=== PATIENT | female | born 1975 | race African-American/Black ===

== ENCOUNTER 2018-06-19 17:02 | Emergency (ER) | payer SELFPAY ==
[~2018-06-19] VITALS: Ht 154.9 cm; Wt 117.9 kg
[2018-06-19 19:00] VITALS: BP 128/82
--- NOTE | 2018-06-19 21:04 | PHYS DOC ---
Past Medical History Past Medical History: No Pertinent History Past Surgical History: Tubal ligation, Other Additional Past Surgical Histo: Right knee surgery, Hemmorhoidectomy Alcohol Use: None Drug Use: None Adult General Chief Complaint Chief Complaint: WRIST PAIN [facility] HPI Patient is a 42 year old [f__sex] who presents with [] Review of Systems Review of Systems Constitutional: Denies fever or chills [] Eyes: Denies change in visual acuity, redness, or eye pain [] HENT: Denies nasal congestion or sore throat [] Respiratory: Denies cough or shortness of breath [] Cardiovascular: No additional information not addressed in HPI [] GI: Denies abdominal pain, nausea, vomiting, bloody stools or diarrhea [] : Denies dysuria or hematuria [] Musculoskeletal: Denies back pain or joint pain [] Integument: Denies rash or skin lesions [] Neurologic: Denies headache, focal weakness or sensory changes [] Endocrine: Denies polyuria or polydipsia [] All other systems were reviewed and found to be within normal limits, except as documented in this note. Allergies Allergies Allergies Coded Allergies Type Severity Reaction Last Updated Verified Penicillins Allergy Intermediate Nausea/Vomiting 06/19/18 Yes erythromycin base Allergy Intermediate Passed Out 06/19/18 Yes Physical Exam Physical Exam Constitutional: Well developed, well nourished, no acute distress, non-toxic appearance. [] HENT: Normocephalic, atraumatic, bilateral external ears normal, oropharynx moist, no oral exudates, nose normal. [] Eyes: PERRLA, EOMI, conjunctiva normal, no discharge. [] Neck: Normal range of motion, no tenderness, supple, no stridor. [] Cardiovascular:Heart rate regular rhythm, no murmur [] Lungs & Thorax: Bilateral breath sounds clear to auscultation [] Abdomen: Bowel sounds normal, soft, no tenderness, no masses, no pulsatile masses. [] Skin: Warm, dry, no erythema, no rash. [] Back: No tenderness, no CVA tenderness. [] Extremities: No tenderness, no cyanosis, no clubbing, ROM intact, no edema. [] Neurologic: Alert and oriented X 3, normal motor function, normal sensory function, no focal deficits noted. [] Psychologic: Affect normal, judgement normal, mood normal. [] Current Patient Data Vital Signs Vital Signs Date Time Temp Pulse Resp B/P (MAP) Pulse Ox O2 Delivery O2 Flow Rate FiO2 06/19/18 19:00 98.4 79 18 128/82 (97) 100 Room Air 98.4 EKG EKG [] Radiology/Procedures Radiology/Procedures [] Course & Med Decision Making Course & Med Decision Making Pertinent Imaging studies reviewed. (See chart for details) 2054: Discussed x-ray results with patient with no obvious displaced fracture on imaging which was discussed with and reviewed by Dr. Asencio. Discussed plans for volar splint and patient to follow-up with orthopedics for reevaluation. Patient remains neuro and vascular intact in right upper extremity. Patient provided on signs and symptoms to return to ER for an discharge instructions were discussed. Will provide Dr. Oconnor's referral information on discharge paperwork. Dragon Disclaimer Dragon Disclaimer This electronic medical record was generated, in whole or in part, using a voice recognition dictation system. Departure Departure Impression: Primary Impression: Injury of wrist, right Disposition: 01 HOME, SELF-CARE Condition: STABLE Referrals: NO PCP (PCP) JOSE A OCONNOR MD Patient Instructions: Wrist Pain Additional Instructions: With ongoing pain he was placed in a splint until follow-up with orthopedic doctor for reevaluation and further care. You can take Tylenol and/or ibuprofen as directed on container as needed for pain control. JORDI DUMONT APRN Jun 19, 2018 21:04
--- NOTE | 2018-06-20 02:58 | RAD ---
Examination: WRIST 3V RIGHT History: RIGHT WRIST PAIN SINCE THIS AFTERNOON. STATES HITTING WRIST ON KITCHEN TABLE X2 DAYS AGO Comparison/Correlation: None Findings: Total 3 images of the right wrist were obtained. Joint spaces are normal. No acute fracture or bony destructive change. Soft tissues are unremarkable. Impression: No acute fracture. Consider further evaluation if occult process is a concern. Electronically signed by: Miki Johnson MD (06/20/2018 2:54 AM) [facility]
== END 2018-06-19 21:46 | disposition home or self-care (01) ==
LOC: ER 17:02
DX: S69.81XA Other specified injuries of right wrist, hand and finger(s), initial encounter (principal); Z98.51 Tubal ligation status; Z88.0 Allergy status to penicillin; Z88.1 Allergy status to other antibiotic agents; X58.XXXA Exposure to other specified factors, initial encounter; Y93.89 Activity, other specified; Y92.89 Other specified places as the place of occurrence of the external cause; Y99.8 Other external cause status
CPT/HCPCS: 73110; 99283

== ENCOUNTER 2018-07-26 21:01 | Emergency (ER) | payer SELFPAY ==
[~2018-07-26] VITALS: Ht 154.9 cm; Wt 117.9 kg
[2018-07-26] MEDS ORDERED: IBUP-1060 PO (21:15)
[2018-07-26] MEDS ORDERED: TRAM50TA PO (21:15)
[2018-07-26 21:26] VITALS: BP 149/79
[2018-07-26] MEDS ORDERED: HYDROcodone/APAP 5/325MG 1 TAB TABLET PO ONE (21:30)
[2018-07-26] MEDS ORDERED: IBUPROFEN 600 MG TABLET. PO ONE (21:30)
--- NOTE | 2018-07-27 02:48 | PHYS DOC ---
Past Medical History Past Medical History: No Pertinent History Past Surgical History: Tubal ligation, Other Additional Past Surgical Histo: Right knee surgery, Hemmorhoidectomy Alcohol Use: None Drug Use: None Adult General Chief Complaint Chief Complaint: LOWER EXT PAIN HPI HPI Patient is a 42 year old female who presents with left foot pain. Patient has had complaints of left foot pain over the last couple of days. She reports she has been standing more than normal because she has a family member at the [facility]. Pain is located over the heel and the plantar surface of the left foot. She denies any recent trauma. She does endorse a prior history of similar symptoms for which she was treated with anti- inflammatory medications. No fever. She has been able to ambulate without difficulty. Review of Systems Review of Systems Constitutional: Denies fever or chills GI: Denies abdominal pain, nausea : Denies dysuria Musculoskeletal: as documented above Integument: Denies rash or skin lesions All other systems were reviewed and found to be within normal limits, except as documented in this note. Current Medications Current Medications Current Medications Medications (Trade) Dose Ordered Sig/Lorna Start Time Stop Time Status Last Admin Dose Admin Acetaminophen/ Hydrocodone Bitart (Lortab 5/325) 1 tab 1X ONCE 07/26/18 21:30 07/26/18 21:30 DC Ibuprofen (Motrin) 600 mg 1X ONCE 07/26/18 21:30 07/26/18 21:30 DC Allergies Allergies Allergies Coded Allergies Type Severity Reaction Last Updated Verified Penicillins Allergy Intermediate Nausea/Vomiting 06/19/18 Yes erythromycin base Allergy Intermediate Passed Out 06/19/18 Yes Physical Exam Physical Exam Constitutional: Well developed, well nourished, no acute distress, non-toxic appearance HENT: Normocephalic, atraumatic, bilateral external ears normal, oropharynx moist Skin: Warm, dry Extremities: normal examination of the left foot other than TTP over plantar fascia from heel to ball of foot. skin is normal Neurologic: Alert and oriented X 3 Psychologic: Affect normal Current Patient Data Vital Signs Vital Signs Date Time Temp Pulse Resp B/P (MAP) Pulse Ox O2 Delivery O2 Flow Rate FiO2 07/26/18 21:26 97.8 71 18 149/79 (102) 100 Room Air 97.8 EKG EKG [] Radiology/Procedures Radiology/Procedures [] Course & Med Decision Making Course & Med Decision Making Pertinent Labs and Imaging studies reviewed. (See chart for details) Patient is evaluated in the emergency department for symptoms consistent with plantar fasciitis. She was given a prescription for ibuprofen and discharged to home. Advised to contact her primary care doctor and follow-up or return to the ER for any new or worsening symptoms. Patient was agreeable to this plan of care. Dragon Disclaimer Dragon Disclaimer This electronic medical record was generated, in whole or in part, using a voice recognition dictation system. Departure Departure Impression: Primary Impression: Plantar fasciitis of left foot Disposition: HOME, SELF-CARE Condition: GOOD Patient Instructions: Plantar Fasciitis (Heel Spur Syndrome) with Rehab- [facility] Scripts Ibuprofen (IBUPROFEN) 800 Mg Tablet 800 MG PO PRN TID PRN for MILD PAIN, #30 TAB take with food or milk to avoid upsetting stomach Prov: SOLEDAD WESTON DO 07/26/18 Tramadol Hcl (TRAMADOL HCL) 50 Mg Tablet 50 MG PO BID PRN for SEVERE PAIN, #20 TAB 0 Refills Prov: SOLEDAD WESTON DO 07/26/18 SOLEDAD WESTON DO Jul 27, 2018 02:48
== END 2018-07-26 21:30 | disposition home or self-care (01) ==
LOC: ER 21:01
DX: M72.2 Plantar fascial fibromatosis (principal); Z88.0 Allergy status to penicillin; Z88.1 Allergy status to other antibiotic agents
CPT/HCPCS: 99283

== ENCOUNTER 2018-08-27 10:39 | Emergency (ER) | payer SELFPAY ==
[~2018-08-27] VITALS: Ht 157.5 cm; Wt 104.3 kg
[~2018-08-27 10:39] MED LIST: IBUP-1060 PO; TRAM50TA PO
[2018-08-27 11:02] VITALS: BP 141/75
[2018-08-27] MEDS ORDERED: IBUPROFEN 600 MG TABLET. PO ONE (11:30)
--- NOTE | 2018-08-27 12:33 | RAD ---
CT THORACIC SPINE WO CONTRAST, CT LUMBAR SPINE WO CONTRAST Indication: FELL ON ICE LAST NIGHT, BACK PAIN. Exposure: One or more of the following individualized dose reduction techniques were utilized for this examination: 1. Automated exposure control 2. Adjustment of the mA and/or kV according to patient size 3. Use of iterative reconstruction technique. Comparison: None are available. Contrast: Thoracic spine Vertebral body height intact. No significant subluxation. No evidence of an acute fracture or aggressive bone destruction. No displaced fracture of the visualized central ribs. Visualized lungs appear grossly clear. Degenerative spondylosis. No high-grade central osseous spinal stenosis. However, there appears to be some stenosis of the partially visualized lower most cervical spine IMPRESSION: No evidence of acute fracture. Degenerative changes. Lumbar spine Vertebral body height intact. Alignment intact. No aggressive bone destruction. No evidence of spondylolysis. Degenerative changes at the sacroiliac joints bilaterally. No evidence of acute fracture. Mild calcifications of the visualized aortoiliac structures. IMPRESSION: No acute fracture or subluxation. Electronically signed by: Abebe Barrera MD (08/27/2018 12:29 PM) [facility]
[2018-08-27] MEDS ORDERED: HYDROcodone/APAP 5/325MG 1 TAB TABLET PO ONE (12:45)
--- NOTE | 2018-08-27 13:11 | RAD ---
ANKLE RIGHT 3V, WRIST 3V LEFT, KNEE LEFT 4V History: RIGHT ANKLE PAIN AFTER FALL ON ICE X1 DAY AGO. 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 Tiny bone density just lateral to the first carpometacarpal joint, could represent a tiny avulsion fracture but age is indeterminate. No other acute fracture is identified. IMPRESSION: 1. Possible small avulsion fracture at the lateral first carpometacarpal joint, but if so it is likely chronic. No definite acute fracture. 2. 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 Joint spaces are intact. No evidence of soft tissue abnormality. IMPRESSION: No acute fracture or dislocation. 3 view right ankle No evidence of acute fracture. No aggressive bone destruction. No evidence of dislocation. No significant soft tissue abnormality. IMPRESSION: No acute fracture or dislocation. Electronically signed by: Abebe Barrera MD (08/27/2018 1:08 PM) [facility]
[2018-08-27] MEDS ORDERED: ORPH100T PO (13:24)
[2018-08-27] MEDS ORDERED: HYDR-3164 PO (13:24)
[2018-08-27] MEDS ORDERED: IBUP-1007 PO (13:24)
--- NOTE | 2018-08-27 13:25 | PHYS DOC ---
Past Medical History Past Medical History: No Pertinent History Past Surgical History: Tubal ligation, Other Additional Past Surgical Histo: Right knee surgery, Hemmorhoidectomy Alcohol Use: None Drug Use: None Adult General Chief Complaint Chief Complaint: MECHANICAL FALL HPI HPI Patient is a 42 year old female who presents with slipped on ice yesterday falling hurting her left wrist, left knee, right ankle and lumbar back bilaterally. Patient is ambulatory with a steady gait. Patient rates her pain a 10 out of 10 and states she did not take any pain medications. Review of Systems Review of Systems Constitutional: Denies fever or chills [] Eyes: Denies change in visual acuity, redness, or eye pain [] HENT: Denies nasal congestion or sore throat [] Respiratory: Denies cough or shortness of breath [] Cardiovascular: No additional information not addressed in HPI [] GI: Denies abdominal pain, nausea, vomiting, bloody stools or diarrhea [] : Denies dysuria or hematuria [] Musculoskeletal: Lumbar back pain or knee and ankle and wrist joint pain [] Integument: Denies rash or skin lesions [] Neurologic: Denies headache, focal weakness or sensory changes [] Endocrine: Denies polyuria or polydipsia [] All other systems were reviewed and found to be within normal limits, except as documented in this note. Current Medications Current Medications Current Medications Medications (Trade) Dose Ordered Sig/Lorna Start Time Stop Time Status Last Admin Dose Admin Acetaminophen/ Hydrocodone Bitart (Lortab 5/325) 1 tab 1X ONCE 08/27/18 12:45 08/27/18 12:46 DC 08/27/18 13:00 1 TAB Ibuprofen (Motrin) 600 mg 1X ONCE 08/27/18 11:30 08/27/18 11:31 DC 08/27/18 12:09 600 MG Allergies Allergies Allergies Coded Allergies Type Severity Reaction Last Updated Verified Penicillins Allergy Intermediate Nausea/Vomiting 06/19/18 Yes erythromycin base Allergy Intermediate Passed Out 06/19/18 Yes Physical Exam Physical Exam Constitutional: Well developed, well nourished, no acute distress, non-toxic appearance. [] HENT: Normocephalic, atraumatic, bilateral external ears normal, oropharynx moist, no oral exudates, nose normal. [] Eyes: PERRLA, EOMI, conjunctiva normal, no discharge. [] Neck: Normal range of motion, no tenderness, supple, no stridor. [] Cardiovascular:Heart rate regular rhythm, no murmur [] Lungs & Thorax: Bilateral breath sounds clear to auscultation [] Abdomen: Bowel sounds normal, soft, no tenderness, no masses, no pulsatile masses. [] Skin: Warm, dry, no erythema, no rash. [] Back: Lumbar tenderness, no CVA tenderness. [] Extremities: No tenderness, no cyanosis, no clubbing, ROM intact, no edema. [] Neurologic: Alert and oriented X 3, normal motor function, normal sensory function, no focal deficits noted. [] Psychologic: Affect normal, judgement normal, mood normal. [] Current Patient Data Vital Signs Vital Signs Date Time Temp Pulse Resp B/P (MAP) Pulse Ox O2 Delivery O2 Flow Rate FiO2 08/27/18 11:02 98.3 76 20 141/75 (97) 99 Room Air 98.3 EKG EKG [] Radiology/Procedures Radiology/Procedures [] Impressions: [facility] [address] [place] [address] IMAGING REPORT Signed PATIENT: BETHANIE THOMAS ACCOUNT: [id number] : 1975 LOCATION: ER AGE: 42 SEX: F EXAM STATUS: REG ER ORD. PHYSICIAN: CARRI FIGUEROA APRN REASON: fall, pain PROCEDURE: WRIST 3V LEFT ANKLE RIGHT 3V, WRIST 3V LEFT, KNEE LEFT 4V History: RIGHT ANKLE PAIN AFTER FALL ON ICE X1 DAY AGO. 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 Tiny bone density just lateral to the first carpometacarpal joint, could represent a tiny avulsion fracture but age is indeterminate. No other acute fracture is identified. IMPRESSION: 1. Possible small avulsion fracture at the lateral first carpometacarpal joint, but if so it is likely chronic. No definite acute fracture. 2. 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 Joint spaces are intact. No evidence of soft tissue abnormality. IMPRESSION: No acute fracture or dislocation. 3 view right ankle No evidence of acute fracture. No aggressive bone destruction. No evidence of dislocation. No significant soft tissue abnormality. IMPRESSION: No acute fracture or dislocation. Electronically signed by: Abebe Barrera MD (08/27/2018 1:08 PM) [facility] DICTATED and SIGNED BY: ABEBE BARRERA MD DATE: 08/27/18 1303 [facility] [address] [place] [address] IMAGING REPORT Signed PATIENT: OVERALL,CRYSTAL ACCOUNT: [id number] : 1975 LOCATION: ER AGE: 42 SEX: F EXAM STATUS: REG ER ORD. PHYSICIAN: CARRI FIGUEROA APRN REASON: fall, pain PROCEDURE: CT THORACIC SPINE WO CONTRAST CT THORACIC SPINE WO CONTRAST, CT LUMBAR SPINE WO CONTRAST Indication: FELL ON ICE LAST NIGHT, BACK PAIN. Exposure: One or more of the following individualized dose reduction techniques were utilized for this examination: 1. Automated exposure control 2. Adjustment of the mA and/or kV according to patient size 3. Use of iterative reconstruction technique. Comparison: None are available. Contrast: Thoracic spine Vertebral body height intact. No significant subluxation. No evidence of an acute fracture or aggressive bone destruction. No displaced fracture of the visualized central ribs. Visualized lungs appear grossly clear. Degenerative spondylosis. No high-grade central osseous spinal stenosis. However, there appears to be some stenosis of the partially visualized lower most cervical spine IMPRESSION: No evidence of acute fracture. Degenerative changes. Lumbar spine Vertebral body height intact. Alignment intact. No aggressive bone destruction. No evidence of spondylolysis. Degenerative changes at the sacroiliac joints bilaterally. No evidence of acute fracture. Mild calcifications of the visualized aortoiliac structures. IMPRESSION: No acute fracture or subluxation. Electronically signed by: Abebe Barrera MD (08/27/2018 12:29 PM) [facility] DICTATED and SIGNED BY: ABEBE BARRERA MD DATE: 08/27/18 1224 [facility] [address] [place] [address] IMAGING REPORT Signed PATIENT: OVERALL,CRYSTAL ACCOUNT: [id number] : 1975 LOCATION: ER AGE: 42 SEX: F EXAM STATUS: REG ER ORD. PHYSICIAN: CARRI FIGUEROA APRN REASON: fall, pain PROCEDURE: CT LUMBAR SPINE WO CONTRAST CT THORACIC SPINE WO CONTRAST, CT LUMBAR SPINE WO CONTRAST Indication: FELL ON ICE LAST NIGHT, BACK PAIN. Exposure: One or more of the following individualized dose reduction techniques were utilized for this examination: 1. Automated exposure control 2. Adjustment of the mA and/or kV according to patient size 3. Use of iterative reconstruction technique. Comparison: None are available. Contrast: Thoracic spine Vertebral body height intact. No significant subluxation. No evidence of an acute fracture or aggressive bone destruction. No displaced fracture of the visualized central ribs. Visualized lungs appear grossly clear. Degenerative spondylosis. No high-grade central osseous spinal stenosis. However, there appears to be some stenosis of the partially visualized lower most cervical spine IMPRESSION: No evidence of acute fracture. Degenerative changes. Lumbar spine Vertebral body height intact. Alignment intact. No aggressive bone destruction. No evidence of spondylolysis. Degenerative changes at the sacroiliac joints bilaterally. No evidence of acute fracture. Mild calcifications of the visualized aortoiliac structures. IMPRESSION: No acute fracture or subluxation. Electronically signed by: Abebe Barrera MD (08/27/2018 12:29 PM) [facility] DICTATED and SIGNED BY: ABEBE BARRERA MD DATE: 08/27/18 1224 [facility] [address] [place], [place] [id number] IMAGING REPORT Signed PATIENT: BETHANIE THOMAS ACCOUNT: [id number] : 1975 LOCATION: ER AGE: 42 SEX: F EXAM STATUS: REG ER ORD. PHYSICIAN: CARRI FIGUEROA APRN REASON: fall, pain PROCEDURE: KNEE LEFT 4V ANKLE RIGHT 3V, WRIST 3V LEFT, KNEE LEFT 4V History: RIGHT ANKLE PAIN AFTER FALL ON ICE X1 DAY AGO. 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 Tiny bone density just lateral to the first carpometacarpal joint, could represent a tiny avulsion fracture but age is indeterminate. No other acute fracture is identified. IMPRESSION: 1. Possible small avulsion fracture at the lateral first carpometacarpal joint, but if so it is likely chronic. No definite acute fracture. 2. 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 Joint spaces are intact. No evidence of soft tissue abnormality. IMPRESSION: No acute fracture or dislocation. 3 view right ankle No evidence of acute fracture. No aggressive bone destruction. No evidence of dislocation. No significant soft tissue abnormality. IMPRESSION: No acute fracture or dislocation. Electronically signed by: Abebe Barrera MD (08/27/2018 1:08 PM) [facility] DICTATED and SIGNED BY: ABEBE BARRERA MD DATE: 08/27/18 1303 [facility] [address] [place] [address] IMAGING REPORT Signed PATIENT: WILLIAM,BETHANIE ACCOUNT: [id number] : 1975 LOCATION: ER AGE: 42 SEX: F EXAM STATUS: REG ER ORD. PHYSICIAN: CARRI FIGUEROA APRN REASON: fall, pain PROCEDURE: ANKLE RIGHT 3V ANKLE RIGHT 3V, WRIST 3V LEFT, KNEE LEFT 4V History: RIGHT ANKLE PAIN AFTER FALL ON ICE X1 DAY AGO. 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 Tiny bone density just lateral to the first carpometacarpal joint, could represent a tiny avulsion fracture but age is indeterminate. No other acute fracture is identified. IMPRESSION: 1. Possible small avulsion fracture at the lateral first carpometacarpal joint, but if so it is likely chronic. No definite acute fracture. 2. 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 Joint spaces are intact. No evidence of soft tissue abnormality. IMPRESSION: No acute fracture or dislocation. 3 view right ankle No evidence of acute fracture. No aggressive bone destruction. No evidence of dislocation. No significant soft tissue abnormality. IMPRESSION: No acute fracture or dislocation. Electronically signed by: Abebe Barrera MD (08/27/2018 1:08 PM) [facility] CENTERArcamedMT. [facility] DI[facility]ATED and SIGNED BY: ABEBE BARRERA MD DATE: 08/27/18 3355 Course & Med Decision Making Course & Med Decision Making Patient is a 42 year old female who presents with slipped on ice yesterday falling hurting her left wrist, left knee, right ankle and lumbar back bilaterally. Patient is ambulatory with a steady gait. Patient rates her pain a 10 out of 10 and states she did not take any pain medications. Patient has tenderness on the outside of her right ankle. Patient has intact range of motion of all her joints but her right ankle and left knee are tender with movement. There is no swelling or deformity seen in any part of the patient's body. She denies hitting her head or LOC. Patient denies any nausea or vomiting. Patient has no bony tenderness in her spine. Patient has no sciatica. She denies any numbness or tingling. Patient has no extremity edema. Pulses are present in all extremities. CT scan and x-rays show no acute findings. Patient likely has muscle sprains, strains and bruising. Patient is given pain medications and told to follow-up with her primary care doctor. Dragon Disclaimer Dragon Disclaimer This electronic medical record was generated, in whole or in part, using a voice recognition dictation system. Departure Departure Impression: Primary Impression: Contusion Additional Impressions: Muscle strain Knee pain Ankle pain Wrist pain Back pain Fall Disposition: 01 HOME, SELF-CARE Condition: STABLE Referrals: NO PCP (PCP) Patient Instructions: Contusion, Fall Prevention and Home Safety, Low Back Strain with [facility]hab[facility] Additional Instructions: Follow up your primary care provider. Take medications as prescribed. Try using a heating bad. Scripts Orphenadrine Citrate (ORPHENADRINE CITRATE) 100 Mg Tablet.er 1 TAB PO BID for 7 Days, #14 TAB Prov: CARRI FIGUEROA WARP PREPARER 08/27/18 Ibuprofen (IBUPROFEN) 600 Mg Tablet 600 MG PO PRN Q6HRS PRN for INFLAMMATION, #15 TAB Prov: CARRI FIGUEROA WARP PREPARER 08/27/18 Hydrocodone/Apap 5-325 (NORCO 5-325 TABLET) 1 Each Tablet 1 TAB PO PRN Q6HRS PRN for PAIN, #10 TAB 0 Refills Prov: CARRI FIGUEROA WARP PREPARER 08/27/18 Problem Qualifiers Primary Impression: Contusion Encounter type: initial encounter Contusion area: knee Laterality: left Qualified Codes: S80.02XA - Contusion of left knee, initial encounter Additional Impressions: Knee pain Chronicity: acute Laterality: left Qualified Codes: M25.562 - Pain in left knee Ankle pain Chronicity: acute Laterality: right Qualified Codes: M25.571 - Pain in right ankle and joints of right foot Wrist pain Laterality: left Qualified Codes: M25.532 - Pain in left wrist Back pain Back pain location: low back pain Chronicity: acute Back pain laterality: bilateral Sciatica presence: without sciatica Qualified Codes: M54.5 - Low back pain Fall Encounter type: initial encounter Qualified Codes: W19.XXXA - Unspecified fall, initial encounter CARRI FIGUEROA APRN Aug 27, 2018 13:25
== END 2018-08-27 13:56 | disposition home or self-care (01) ==
LOC: ER 10:39
DX: S39.012A Strain of muscle, fascia and tendon of lower back, initial encounter (principal); M25.562 Pain in left knee; M25.571 Pain in right ankle and joints of right foot; M25.532 Pain in left wrist; M47.894 Other spondylosis, thoracic region; Z88.0 Allergy status to penicillin; Z88.1 Allergy status to other antibiotic agents; W00.0XXA Fall on same level due to ice and snow, initial encounter; Y93.89 Activity, other specified; Y92.89 Other specified places as the place of occurrence of the external cause; Y99.8 Other external cause status
CPT/HCPCS: 72128; 72131; 73110; 73564; 73610; 99284

== ENCOUNTER 2018-12-11 10:43 | Emergency (ER) | payer SELFPAY ==
[~2018-12-11] VITALS: Ht 157.5 cm; Wt 117.9 kg
[~2018-12-11 10:43] MED LIST changes: +HYDR-3164 PO; +IBUP-1007 PO; +ORPH100T PO
--- NOTE | 2018-12-11 11:16 | PHYS DOC ---
Past Medical History Past Medical History: No Pertinent History Past Surgical History: Tubal ligation, Other Additional Past Surgical Histo: Right knee surgery, Hemmorhoidectomy Alcohol Use: None Drug Use: None Adult General Chief Complaint Chief Complaint: ANKLE PROBLEM [facility] HPI Patient is a 43 year old female presents to the ED complaining of left foot pain 1 week. Patient has a new job where she has to work on her feet a lot. Complains of pain to left foot. Describes the pain as sharp. Rates the pain as 5 out of 10. States the pain is worse with ambulation. Denies weakness, paresthesias, known injury, calf pain/swelling. Review of Systems Review of Systems Constitutional: Denies fever or chills [] Eyes: Denies change in visual acuity, redness, or eye pain [] HENT: Denies nasal congestion or sore throat [] Respiratory: Denies cough or shortness of breath [] Cardiovascular: No additional information not addressed in HPI [] GI: Denies abdominal pain, nausea, vomiting, bloody stools or diarrhea [] : Denies dysuria or hematuria [] Musculoskeletal: Complains of foot pain. Denies back pain. Integument: Denies rash or skin lesions [] Neurologic: Denies headache, focal weakness or sensory changes [] All other systems were reviewed and found to be within normal limits, except as documented in this note. Allergies Allergies Allergies Coded Allergies Type Severity Reaction Last Updated Verified Penicillins Allergy Intermediate Nausea/Vomiting 06/19/18 Yes erythromycin base Allergy Intermediate Passed Out 06/19/18 Yes Physical Exam Physical Exam Constitutional: Well developed, well nourished, no acute distress, non-toxic appearance. [] HENT: Normocephalic, atraumatic Skin: Warm, dry, no erythema, no rash. [] Back: No tenderness, no CVA tenderness. [] Extremities: mild left mid dorsal foot tenderness. no cyanosis, no clubbing, ROM intact, no edema. [] Neurologic: Alert and oriented X 3, normal motor function, normal sensory function, no focal deficits noted. [] Psychologic: Affect normal, judgement normal, mood normal. [] Current Patient Data Vital Signs Vital Signs Date Time Temp Pulse Resp B/P (MAP) Pulse Ox O2 Delivery O2 Flow Rate FiO2 12/11/18 12:07 78 16 160/77 (104) 97 Room Air 12/11/18 10:46 98.3 98.3 EKG EKG [] Radiology/Procedures Radiology/Procedures []PROCEDURE: FOOT LEFT 3V Exam performed: Left foot 3 views. Indication: Left foot pain for one week Date of Service: 12/11/2018 . Comparison: None available Three views left foot findings: Normal alignment is preserved. There is no acute fracture or dislocation. There is mild soft tissue swelling, no definite foreign bodies identified. Impression: 1. No acute bony abnormality seen . Course & Med Decision Making Course & Med Decision Making Pertinent Labs and Imaging studies reviewed. (See chart for details) []Discussed imaging findings with patient. Patient's able to ambulate without assistance. Discussed symptomatic treatment and using inserts. Discussed follow- up with orthopedics if pain persists. Provided contact information/education. Discussed reasons to return to the ED. Patient understands and agrees with plan. Dragon Disclaimer Dragon Disclaimer This electronic medical record was generated, in whole or in part, using a voice recognition dictation system. Departure Departure Impression: Primary Impression: Foot pain Disposition: 01 HOME, SELF-CARE Condition: STABLE Referrals: NO PCP (PCP) Patient Instructions: Foot Sprain RANI WITT Dec 11, 2018 11:16
--- NOTE | 2018-12-11 11:52 | RAD ---
Exam performed: Left foot 3 views. Indication: Left foot pain for one week Date of Service: 12/11/2018 . Comparison: None available Three views left foot findings: Normal alignment is preserved. There is no acute fracture or dislocation. There is mild soft tissue swelling, no definite foreign bodies identified. Impression: 1. No acute bony abnormality seen . Electronically signed by: Alayna Matthews MD (12/11/2018 11:50 AM) [facility]
[2018-12-11 12:07] VITALS: BP 160/77
== END 2018-12-11 12:07 | disposition home or self-care (01) ==
LOC: ER 10:43
DX: M79.672 Pain in left foot (principal); Z98.51 Tubal ligation status; Z88.0 Allergy status to penicillin; Z88.1 Allergy status to other antibiotic agents
CPT/HCPCS: 73630; 99284

== ENCOUNTER 2019-01-06 15:10 | Emergency (ER) | payer SELFPAY ==
[~2019-01-06] VITALS: Ht 157.5 cm; Wt 115.7 kg
[~2019-01-06 15:10] MED LIST changes: +FAMO-63 PO; +LORA0.5T96 PO
[2019-01-06 15:41] LABS: BASO # 0.1 x10^3/uL (0.0-0.2); BASO % 1 % (0-3); EOS # 0.3 x10^3/uL (0.0-0.7); EOS % 4 % (0-3); HEMOGLOBIN 13.8 g/dL (12.0-15.5); LYMPH % 28 % (24-48); MEAN CORPUSCULAR HEMOGLOBIN 30 pg (25-35); MEAN CORPUSCULAR HGB CONC 34 g/dL (31-37); MEAN CORPUSCULAR VOLUME 89 fL (79-100); MONO # 0.7 x10^3/uL (0.0-1.1); MONO % 10 % (0-9); NEUT % 57 % (31-73); PLATELET COUNT 398 x10^3/uL (140-400); RED BLOOD COUNT 4.62 x10^6/uL (3.50-5.40); RED CELL DISTRIBUTION WIDTH 13.8 % (11.5-14.5)
--- NOTE | 2019-01-06 15:43 | PHYS DOC ---
Past Medical History Past Medical History: No Pertinent History, Anxiety Past Surgical History: Tubal ligation, Other Additional Past Surgical Histo: Right knee surgery, Hemmorhoidectomy Alcohol Use: None Drug Use: None Adult General Chief Complaint Chief Complaint: CHEST PAIN HPI HPI Patient is a 43 year old female with history of anxiety who presents to the ED today complaining of left-sided chest pain intermittently for one month. Patient denies any pain right now. Unable to rate the pain when it occurs. Denies anything specifically exacerbating the pain but she states whenever she has it she can pinch her left breast and the pain is relieved. She states she has been seen by her PCP a couple days ago and was started on antianxiety medications. She states she's been told her chest pain is anxiety related. She presents today to be evaluated. Review of Systems Review of Systems Constitutional: Denies fever or chills [] Eyes: Denies change in visual acuity, redness, or eye pain [] HENT: Denies nasal congestion or sore throat [] Respiratory: Denies cough or shortness of breath [] Cardiovascular: Reports left-sided chest pain GI: Denies abdominal pain, nausea, vomiting, bloody stools or diarrhea [] : Denies dysuria or hematuria [] Musculoskeletal: Denies back pain or joint pain [] Integument: Denies rash or skin lesions [] Neurologic: Denies headache, focal weakness or sensory changes [] All other systems were reviewed and found to be within normal limits, except as documented in this note. Allergies Allergies Allergies Coded Allergies Type Severity Reaction Last Updated Verified Penicillins Allergy Intermediate Nausea/Vomiting 06/19/18 Yes erythromycin base Allergy Intermediate Passed Out 06/19/18 Yes Physical Exam Physical Exam Constitutional: Well developed, well nourished, no acute distress, non-toxic appearance. [] HENT: Normocephalic, atraumatic, bilateral external ears normal, oropharynx moist, no oral exudates, nose normal. [] Eyes: PERRLA, EOMI, conjunctiva normal, no discharge. [] Neck: Normal range of motion, no tenderness, supple, no stridor. [] Cardiovascular:Heart rate regular rhythm, no murmur [] Lungs & Thorax: Bilateral breath sounds clear to auscultation [] Abdomen: Bowel sounds normal, soft, no tenderness, no masses, no pulsatile masses. [] Skin: Warm, dry, no erythema, no rash. [] Back: No tenderness, no CVA tenderness. [] Extremities: No tenderness, no cyanosis, no clubbing, ROM intact, no edema. [] Neurologic: Alert and oriented X 3, normal motor function, normal sensory function, no focal deficits noted. [] Psychologic: Affect normal, judgement normal, mood normal. [] Current Patient Data Vital Signs Vital Signs Date Time Temp Pulse Resp B/P (MAP) Pulse Ox O2 Delivery O2 Flow Rate FiO2 01/06/19 15:20 97.5 78 16 174/79 (110) 100 Room Air 97.5 Lab Values Laboratory Tests Test 01/06/19 15:30 01/06/19 15:47 White Blood Count 7.0 x10^3/uL (4.0-11.0) Red Blood Count 4.62 x10^6/uL (3.50-5.40) Hemoglobin 13.8 g/dL (12.0-15.5) Hematocrit 41.0 % (36.0-47.0) Mean Corpuscular Volume 89 fL (79-100) Mean Corpuscular Hemoglobin 30 pg (25-35) Mean Corpuscular Hemoglobin Concent 34 g/dL (31-37) Red Cell Distribution Width 13.8 % (11.5-14.5) Platelet Count 398 x10^3/uL (140-400) Neutrophils (%) (Auto) 57 % (31-73) Lymphocytes (%) (Auto) 28 % (24-48) Monocytes (%) (Auto) 10 % (0-9) H Eosinophils (%) (Auto) 4 % (0-3) H Basophils (%) (Auto) 1 % (0-3) Neutrophils # (Auto) 4.0 x10^3uL (1.8-7.7) Lymphocytes # (Auto) 2.0 x10^3/uL (1.0-4.8) Monocytes # (Auto) 0.7 x10^3/uL (0.0-1.1) Eosinophils # (Auto) 0.3 x10^3/uL (0.0-0.7) Basophils # (Auto) 0.1 x10^3/uL (0.0-0.2) Sodium Level 136 mmol/L (136-145) Potassium Level 3.8 mmol/L (3.5-5.1) Chloride Level 101 mmol/L (98-107) Carbon Dioxide Level 26 mmol/L (21-32) Anion Gap 9 (6-14) Blood Urea Nitrogen 10 mg/dL (7-20) Creatinine 0.9 mg/dL (0.6-1.0) Estimated GFR (Cockcroft-Gault) 81.9 BUN/Creatinine Ratio 11 (6-20) Glucose Level 105 mg/dL (70-99) H Calcium Level 9.5 mg/dL (8.5-10.1) Magnesium Level 1.8 mg/dL (1.8-2.4) Total Bilirubin 0.4 mg/dL (0.2-1.0) Aspartate Amino Transferase (AST) 14 U/L (15-37) L Alanine Aminotransferase (ALT) 23 U/L (14-59) Alkaline Phosphatase 90 U/L (46-116) Troponin I Quantitative < 0.017 ng/mL (0.000-0.055) [id number] Natriuretic Peptide 10 pg/mL (0-124) Total Protein 9.3 g/dL (6.4-8.2) H Albumin 3.4 g/dL (3.4-5.0) Albumin/Globulin Ratio 0.6 (1.0-1.7) L Thyroid Stimulating Hormone (TSH) 0.882 uIU/mL (0.358-3.74) Urine Collection Type Unknown Urine Color Yellow Urine Clarity Clear Urine pH 6.5 Urine Specific [place] 1.020 Urine Protein Negative mg/dL (NEG-TRACE) Urine Glucose (UA) Negative mg/dL (NEG) Urine Ketones (Stick) Negative mg/dL (NEG) Urine Blood Negative (NEG) Urine Nitrite Negative (NEG) Urine Bilirubin Negative (NEG) Urine Urobilinogen Dipstick 1.0 mg/dL (0.2 mg/dL) Urine Leukocyte Esterase Negative (NEG) Urine RBC Occ /HPF (0-2) Urine WBC 1-4 /HPF (0-4) Urine Squamous Epithelial Cells Mod /LPF Urine Bacteria 0 /HPF (0-FEW) Urine Mucus Slight /LPF Urine Opiates Screen Neg (NEG) Urine Methadone Screen Neg (NEG) Urine Barbiturates Neg (NEG) Urine Phencyclidine Screen Neg (NEG) Urine Amphetamine/Methamphetamine Neg (NEG) Urine Benzodiazepines Screen Neg (NEG) Urine Cocaine Screen Neg (NEG) Urine Cannabinoids Screen Neg (NEG) Urine Ethyl Alcohol Neg (NEG) Laboratory Tests 01/06/19 15:30 Laboratory Tests 01/06/19 15:30 EKG EKG 15:[address] Moreno sinus rhythm heart rate 81 no STEMI Radiology/Procedures Radiology/Procedures [] Course & Med Decision Making Course & Med Decision Making Pertinent Labs and Imaging studies reviewed. (See chart for details) This is a 43-year-old female patient presenting to the ED today with left-sided chest pain, symptoms for 1 month intermittently. Currently has no chest pain. Has been worked up for her chest pain and was diagnosed with anxiety. Was started on antianxiety medication. EKG is negative, chest x-ray is negative, labs including troponin are negative. She is a low risk patient. She was discharged home. Encouraged to continue taking her anxiety medicines and follow- up with her own PCP in the course of next week. Also provided certified scrub tech for follow-up. Dragon Disclaimer Dragon Disclaimer This electronic medical record was generated, in whole or in part, using a voice recognition dictation system. The HEART Score for CP Pts HEART Score for Chest Pain: HEART Score for Chest Pain Response (Comments) Value History Slighlty/Non-Suspicious 0 ECG Normal 0 Age >45 - < 65 1 Risk Factors No Risk Factors 0 Troponin < Normal Limit 0 Total 1 Risk Factors: Risk Factors: DM, Current or recent (<one month) smoker, HTN, HLP, family history of CAD, obesity. Risk Scores: Score 0 - 3: 2.5% MACE over next 6 weeks - Discharge Home Score 4 - 6: 20.3% MACE over next 6 weeks - Admit for Clinical Observation Score 7 - 10: 72.7% MACE over next 6 weeks - Early Invasive Strategies Departure Departure Impression: Primary Impression: Chest pain Disposition: HOME, SELF-CARE Condition: STABLE Referrals: NO PCP (PCP) JAISON COX MD follow up in 1-2 weeks Patient Instructions: Chest Pain (Nonspecific) Additional Instructions: You were evaluated in the emergency room for chest pain. Your workup was negative for any acute findings. Please continue taking anxiety medications and follow-up with your doctor in the course of next week. You can also follow-up with the provided certified scrub tech. Problem Qualifiers Primary Impression: Chest pain Chest pain type: unspecified Qualified Codes: R07.9 - Chest pain, unspecified KAM ZULETA PROGRAM MGR Jan 06, 2019 15:43
--- NOTE | 2019-01-06 15:50 | RAD ---
Single view chest dated 01/06/2019: No comparison available. Clinical Indication: Chest pain. Findings: Single upright portable exam of the chest was performed. Heart size and mediastinal contours are within normal limits given technique. The lungs are clear without evidence of focal consolidation. Vascular interstitium is within normal limits. Impression:: Negative portable chest. Electronically signed by: Abebe Layton MD (01/06/2019 3:47 PM) [facility] [place]
[2019-01-06 16:06] LABS: BILIRUBIN,URINE NEGATIVE (NEG); CLARITY,URINE CLEAR; COLOR,URINE YELLOW; NITRITE,URINE NEGATIVE (NEG); PH,URINE 6.5; PROTEIN,URINE NEGATIVE (NEG-TRACE)
[2019-01-06 16:11] LABS: CALCIUM 9.5 mg/dL (8.5-10.1); CREATININE 0.9 mg/dL (0.6-1.0); GFR 81.9; POTASSIUM 3.8 mmol/L (3.5-5.1)
[2019-01-06 16:14] LABS: ALBUMIN 3.4 g/dL (3.4-5.0); ALBUMIN/GLOBULIN RATIO 0.6 (1.0-1.7); MAGNESIUM 1.8 mg/dL (1.8-2.4); TOTAL BILIRUBIN 0.4 mg/dL (0.2-1.0); TOTAL PROTEIN 9.3 g/dL (6.4-8.2)
[2019-01-06 16:15] LABS: BARBITURATES NEG (NEG); BENZODIAZEPINES NEG (NEG); CANNABINOIDS NEG (NEG); COCAINE NEG (NEG); METHADONE NEG (NEG); OPIATES NEG (NEG); PHENCYCLIDINE NEG (NEG)
[2019-01-06 16:16] LABS: AMPHETAMINE/METHAMPHETAMINE NEG (NEG)
[2019-01-06 16:21] LABS: BACTERIA,URINE 0 /HPF (0-FEW); RBC,URINE OCC /HPF (0-2); SQUAMOUS EPITHELIAL CELL,UR MOD /LPF
[2019-01-06 17:13] VITALS: BP 133/78
--- NOTE | 2019-01-08 07:56 | EKG ---
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
== END 2019-01-06 17:20 | disposition home or self-care (01) ==
LOC: ER 15:10
DX: R07.89 Other chest pain (principal); F41.9 Anxiety disorder, unspecified; Z98.51 Tubal ligation status; Z88.0 Allergy status to penicillin; Z88.1 Allergy status to other antibiotic agents
CPT/HCPCS: 36415; 71045; 80053; 80307; 81001; 83735; 83880; 84443; 84484; 85025; 93005; 99285-25

== ENCOUNTER 2019-01-22 16:09 | Emergency (ER) | payer SELFPAY ==
[~2019-01-22] VITALS: Ht 154.9 cm; Wt 115.7 kg
[2019-01-22 16:49] LABS: BILIRUBIN,URINE NEGATIVE (NEG); CLARITY,URINE CLEAR; COLOR,URINE YELLOW; NITRITE,URINE NEGATIVE (NEG); PH,URINE 5.5; PROTEIN,URINE NEGATIVE (NEG-TRACE)
[2019-01-22 16:54] VITALS: BP 147/70
[2019-01-22 17:01] LABS: BACTERIA,URINE FEW /HPF (0-FEW); RBC,URINE 0 /HPF (0-2); WBC,URINE RARE /HPF (0-4)
[2019-01-22 17:02] LABS: SQUAMOUS EPITHELIAL CELL,UR MOD /LPF
[2019-01-22] MEDS ORDERED: NYST15PO9 TP (17:41)
--- NOTE | 2019-01-22 17:42 | PHYS DOC ---
Past Medical History Past Medical History: Anxiety, Depression Past Surgical History: Tubal ligation, Other Additional Past Surgical Histo: Right knee surgery, Hemmorhoidectomy Alcohol Use: None Drug Use: None Adult General Chief Complaint Chief Complaint: VAGINAL PROBLEM HPI HPI Patient is a 43 year old female with history of prediabetes who presents to the ED today complaining of vaginal irritation that has been going on for 1 month. Patient states she has tried using [id number] remedies specifically baby products for diaper rash with no relief. Denies any concerns for STDs. She states she's not been sexually active for 3 years. Review of Systems Review of Systems Constitutional: Denies fever or chills [] GI: Denies abdominal pain, nausea, vomiting, bloody stools or diarrhea [] Reports vaginal irritation : Denies dysuria or hematuria [] Musculoskeletal: Denies back pain or joint pain [] Integument: Denies rash or skin lesions [] Neurologic: Denies headache, focal weakness or sensory changes [] All other systems were reviewed and found to be within normal limits, except as documented in this note. Current Medications Current Medications Current Medications Medications (Trade) Dose Ordered Sig/Lorna Start Time Stop Time Status Last Admin Dose Admin Nystatin (Nystop) 1 kenji 1X ONCE 01/22/19 21:00 01/22/19 21:01 Allergies Allergies Allergies Coded Allergies Type Severity Reaction Last Updated Verified Penicillins Allergy Intermediate Nausea/Vomiting 06/19/18 Yes erythromycin base Allergy Intermediate Passed Out 06/19/18 Yes Physical Exam Physical Exam Constitutional: Well developed, well nourished, no acute distress, non-toxic appearance. [] Abdomen: Bowel sounds normal, soft, no tenderness, no masses, no pulsatile masses. [] Pelvic exam External pelvic area is excoriated especially in between the groin region. The areas wet macerated consistent with a yeast infection. Cervix is visualized, closed, no CMT, no adnexal tenderness, trace amount of clear discharge in the vaginal vault. Skin: Warm, dry, no erythema, no rash. [] Back: No tenderness, no CVA tenderness. [] Extremities: No tenderness, no cyanosis, no clubbing, ROM intact, no edema. [] Neurologic: Alert and oriented X 3, normal motor function, normal sensory fu nction, no focal deficits noted. [] Psychologic: Affect normal, judgement normal, mood normal. [] Current Patient Data Vital Signs Vital Signs Date Time Temp Pulse Resp B/P (MAP) Pulse Ox O2 Delivery O2 Flow Rate FiO2 01/22/19 16:54 98.6 84 20 147/70 (95) 99 Room Air 98.6 Lab Values Laboratory Tests Test 01/22/19 16:25 01/22/19 16:30 Urine Collection Type Unknown Urine Color Yellow Urine Clarity Clear Urine pH 5.5 Urine Specific [place] 1.025 Urine Protein Negative mg/dL (NEG-TRACE) Urine Glucose (UA) Negative mg/dL (NEG) Urine Ketones (Stick) Negative mg/dL (NEG) Urine Blood Negative (NEG) Urine Nitrite Negative (NEG) Urine Bilirubin Negative (NEG) Urine Urobilinogen Dipstick 1.0 mg/dL (0.2 mg/dL) Urine Leukocyte Esterase Negative (NEG) Urine RBC 0 /HPF (0-2) Urine WBC Rare /HPF (0-4) Urine Squamous Epithelial Cells Mod /LPF Urine Bacteria Few /HPF (0-FEW) Urine Mucus Slight /LPF POC Urine HCG, Qualitative Hcg negative (Negative) Microbiology 01/22/19 Wet Prep - Final, Complete EKG EKG [] Radiology/Procedures Radiology/Procedures [] Course & Med Decision Making Course & Med Decision Making Pertinent Labs and Imaging studies reviewed. (See chart for details) This is a 43-year-old female patient presenting to the ED today with vaginal irritation, on physical exam patient is noted for exterior vaginal candidiasis. Discharged with nystatin. I requested patient to start following up with the primary care doctor for her pre-diabetes she likely needs to be on diabetes medication blood sugar was ordered in the ED still waiting to know results. She was discharged to home on nystatin. Dragon Disclaimer Dragon Disclaimer This electronic medical record was generated, in whole or in part, using a voice recognition dictation system. Departure Departure Impression: Primary Impression: Cutaneous candidiasis Disposition: 01 HOME, SELF-CARE Condition: STABLE Referrals: NO PCP (PCP) Please follow-up with your doctor in one week Patient Instructions: [place] Infection, Adult Additional Instructions: You were evaluated in the emergency room for exterior vaginal area yeast infection. This is a very a very common infection for people with diabetes. I highly recommend you follow-up with your doctor for blood glucose management. Use the prescribed medication as ordered. Scripts Nystatin (NYSTATIN) 15 Gm Powder 1 KENJI TP BID, #1 BOTTLE 1 Refill Apply to the exterior vaginal area Prov: KAM ZULETA APRN 01/22/19 KAM ZULETA APRN Jan 22, 2019 17:42
[2019-01-22] MEDS ORDERED: NYSTATIN TOPICAL POWDER 15GM BOTTLE. TP ONE (21:00)
[2019-01-23 17:13] LABS: GC PROBE Negative (Negative)
== END 2019-01-22 17:50 | disposition home or self-care (01) ==
LOC: ER 16:09
DX: B37.3 Candidiasis of vulva and vagina (principal); F41.9 Anxiety disorder, unspecified; F32.9 Major depressive disorder, single episode, unspecified; Z98.51 Tubal ligation status; Z88.0 Allergy status to penicillin; Z88.1 Allergy status to other antibiotic agents
CPT/HCPCS: 81001; 81025; 82962; 87491; 87591; 99284; Q0111

== ENCOUNTER 2019-02-21 10:02 | Emergency (ER) | payer SELFPAY ==
[~2019-02-21] VITALS: Ht 154.9 cm; Wt 115.7 kg
[~2019-02-21 10:02] MED LIST changes: +NYST15PO9 TP
[2019-02-21] MEDS ORDERED: IV NORMAL SALINE 1000ML BAG 1,000 ML IV ONE (10:45)
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
[2019-02-21 11:04] LABS: BILIRUBIN,URINE NEGATIVE (NEG); CLARITY,URINE CLEAR; COLOR,URINE YELLOW; NITRITE,URINE NEGATIVE (NEG); PROTEIN,URINE NEGATIVE (NEG-TRACE)
[2019-02-21] MEDS ORDERED: FAMOTIDINE 20 MG/2 ML VIAL IVP ONE (11:15)
[2019-02-21] MEDS ORDERED: hydrOXYzine 25 MG TABLET PO ONE (11:15)
[2019-02-21 11:18] LABS: RBC,URINE 0 /HPF (0-2); SQUAMOUS EPITHELIAL CELL,UR MOD /LPF
[2019-02-21 11:19] LABS: BACTERIA,URINE FEW /HPF (0-FEW)
[2019-02-21 11:31] LABS: BASO % 1 % (0-3); EOS # 0.3 x10^3/uL (0.0-0.7); EOS % 6 % (0-3); HEMATOCRIT 41.1 % (36.0-47.0); HEMOGLOBIN 13.9 g/dL (12.0-15.5); LYMPH # 1.8 x10^3/uL (1.0-4.8); LYMPH % 34 % (24-48); MEAN CORPUSCULAR HEMOGLOBIN 30 pg (25-35); MEAN CORPUSCULAR HGB CONC 34 g/dL (31-37); MEAN CORPUSCULAR VOLUME 89 fL (79-100); MONO # 0.6 x10^3/uL (0.0-1.1); MONO % 11 % (0-9); NEUT # 2.5 x10^3/uL (1.8-7.7); NEUT % 48 % (31-73); PLATELET COUNT 431 x10^3/uL (140-400); RED BLOOD COUNT 4.61 x10^6/uL (3.50-5.40); RED CELL DISTRIBUTION WIDTH 14.1 % (11.5-14.5); WHITE BLOOD COUNT 5.3 x10^3/uL (4.0-11.0)
[2019-02-21 11:33] LABS: CALCIUM 9.3 mg/dL (8.5-10.1); GFR 72.5; POTASSIUM 3.8 mmol/L (3.5-5.1)
--- NOTE | 2019-02-21 11:34 | RAD ---
CHEST PA LATERAL History: Chest pain Comparison: December 31, 2018 Findings: 2 views of the chest are submitted. Pericardial cardiac silhouette is unchanged. There is no dependent pleural fluid or pneumothorax. There is mild increased more linear-appearing opacity of the right lung base. Impression: 1. There is increased more linear-appearing opacity right lung base, atelectasis favored over infiltrate. Electronically signed by: Osmani Flor MD (02/21/2019 11:31 AM) [email or web address]
--- NOTE | 2019-02-21 11:37 | RAD ---
CT HEAD WO CONTRAST History: Dizziness Comparison: None. Technique: Noncontrast CT imaging was performed of the head. Exposure: One or more of the following individualized dose reduction techniques were utilized for this examination: 1. Automated exposure control 2. Adjustment of the mA and/or kV according to patient size 3. Use of iterative reconstruction technique. Findings: There is some motion. No acute extra-axial or parenchymal hemorrhage is identified. There is no significant intra-axial mass effect, midline shift, or extra-axial fluid collection. The morrow-white differentiation of the major vascular territories is preserved. The ventricles, sulci, and cisterns are within normal limits in size and configuration. The mastoid air cells and the visualized paranasal sinuses are aerated. No acute calvarial abnormality is identified. Impression: 1. No acute intracranial abnormality is identified. Electronically signed by: Osmani Flor MD (02/21/2019 11:34 AM) [email or web address]
[2019-02-21 11:39] LABS: ALBUMIN 3.4 g/dL (3.4-5.0); ALBUMIN/GLOBULIN RATIO 0.7 (1.0-1.7); TOTAL BILIRUBIN 0.4 mg/dL (0.2-1.0); TOTAL PROTEIN 8.5 g/dL (6.4-8.2)
[2019-02-21 12:06] LABS: U PREG PATIENT NEGATIVE (NEG)
[2019-02-21 13:24] VITALS: BP 108/65
--- NOTE | 2019-02-21 13:37 | EKG ---
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
== END 2019-02-21 13:35 | disposition home or self-care (01) ==
LOC: ER 10:02
DX: F41.9 Anxiety disorder, unspecified (principal); R07.89 Other chest pain; R42 Dizziness and giddiness; R00.2 Palpitations; R51 Headache; F32.9 Major depressive disorder, single episode, unspecified; K21.9 Gastro-esophageal reflux disease without esophagitis; Z98.51 Tubal ligation status; Z88.0 Allergy status to penicillin; Z88.1 Allergy status to other antibiotic agents
CPT/HCPCS: 36415; 70450; 71046; 80053; 81001; 81025; 84484; 85025; 93005; 96361; 96374; 96375; 99285; J2060; J3490; J7030

== ENCOUNTER 2019-08-30 09:40 | Emergency (ER) | payer SELFPAY ==
[~2019-08-30] VITALS: Ht 154.9 cm; Wt 113.6 kg
[2019-08-30 10:10] VITALS: BP 134/77
--- NOTE | 2019-08-30 12:04 | RAD ---
EXAM: CT Head without IV contrast INDICATION: Left vision loss TECHNIQUE: Multi-detector row CT images were obtained of the head without the use of IV contrast. All CT scans performed at this facility utilize dose optimization techniques as appropriate to the exam, including the following: Automated exposure control and adjustment of the mA and/or KV according to patient size (this includes techniques or standardized protocols for targeted exams where dose is indication/reason for exam). COMPARISON: None FINDINGS: BRAIN PARENCHYMA: No evidence of acute intraparenchymal hemorrhage or infarct. No abnormal parenchymal density or mass. VENTRICLES & EXTRA-AXIAL SPACES: Ventricles are within normal limits. Basilar cisterns are patent. No pathologic extra-axial fluid collection or mass. ORBITS: Orbital contents are unremarkable. SINUSES: Visualized paranasal sinuses and mastoid air cells are clear. OSSEOUS & SOFT TISSUES: Calvarium and skull base are intact. IMPRESSION: Normal CT of the head without contrast. EXAM: CT Orbits without IV contrast INDICATION: Left vision loss. TECHNIQUE: Multi-detector row CT images were obtained through the orbits without the use of IV contrast. Post-processing reconstructed images were obtained for interpretation. All CT scans performed at this facility utilize dose optimization techniques as appropriate to the exam, including the following: Automated exposure control and adjustment of the mA and/or KV according to patient size (this includes techniques or standardized protocols for targeted exams where dose is indication/reason for exam). COMPARISON: None FINDINGS: The absence of IV contrast limits evaluation of soft tissue pathology. ORBITS: The globes are normal in size, contour, and position. The course and caliber of the optic nerve sheath complex is within normal limits. The extraocular muscles, intraconal fat, and extraconal fat are unremarkable. The lacrimal glands appear normal. The orbital palmer and optic canals are normal. No abnormal enhancement. VISUALIZED INTRACRANIAL STRUCTURES: Unremarkable. SINUSES: Visualized paranasal sinuses and mastoid air cells are clear. OSSEOUS & SOFT TISSUES: Unremarkable. IMPRESSION: Normal CT of the orbits without contrast. Electronically signed by: Katerin Canales MD (08/30/2019 12:01 PM) [facility]
--- NOTE | 2019-08-30 12:31 | PHYS DOC ---
Past Medical History Past Medical History: Anxiety, High Cholesterol, Hypertension Additional Past Medical Histor: PRE-DIABETES Past Surgical History: Tubal ligation, Other Additional Past Surgical Histo: Right knee surgery, Hemmorhoidectomy Smoking Status: Former Smoker Alcohol Use: None Drug Use: None Adult General Chief Complaint Chief Complaint: VISION PROBLEM HPI HPI Patient is a 43 year old female with history of hypertension, anxiety, high cholesterol, who presents to the ED today complaining of vision issues to the left eye. Patient states she woke up this morning and for approximately 5 minutes she could not see from the left eye. She states they issue resolved itself after 5 minutes. 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 She states she has seen her PCP for this symptoms and was told it is her anxiety. Patient denies any headache, denies any chest pain or shortness of breath. Denies any eye pain. Review of Systems Review of Systems Constitutional: Denies fever or chills [] Eyes: Reports vision loss to the left eye. Denies change in visual acuity, redness, or eye pain [] HENT: Denies nasal congestion or sore throat [] Respiratory: Denies cough or shortness of breath [] Cardiovascular: No additional information not addressed in HPI [] GI: Denies abdominal pain, nausea, vomiting, bloody stools or diarrhea [] : Denies dysuria or hematuria [] Musculoskeletal: Denies back pain or joint pain [] Integument: Denies rash or skin lesions [] Neurologic: Denies headache, focal weakness or sensory changes [] All other systems were reviewed and found to be within normal limits, except as documented in this note. Allergies Allergies Allergies Coded Allergies Type Severity Reaction Last Updated Verified Penicillins Allergy Intermediate Nausea/Vomiting 06/19/18 Yes erythromycin base Allergy Intermediate Passed Out 06/19/18 Yes Physical Exam Physical Exam Constitutional: Well developed, well nourished, no acute distress, non-toxic appearance. [] HENT: Normocephalic, atraumatic, bilateral external ears normal, oropharynx moist, no oral exudates, nose normal. [] Eyes: PERRLA, EOMI, conjunctiva normal, no discharge. [] Internal chambers of bilateral eyes are normal Neck: Normal range of motion, no tenderness, supple, no stridor. [] Cardiovascular:Heart rate regular rhythm, no murmur [] Lungs & Thorax: Bilateral breath sounds clear to auscultation [] Abdomen: Bowel sounds normal, soft, no tenderness, no masses, no pulsatile masses. [] Skin: Warm, dry, no erythema, no rash. [] Back: No tenderness, no CVA tenderness. [] Extremities: No tenderness, no cyanosis, no clubbing, ROM intact, no edema. [] Neurologic: Alert and oriented X 3, normal motor function, normal sensory function, no focal deficits noted. [] Psychologic: Affect normal, judgement normal, mood normal. [] Current Patient Data Vital Signs Vital Signs Date Time Temp Pulse Resp B/P (MAP) Pulse Ox O2 Delivery O2 Flow Rate FiO2 08/30/19 10:10 98.1 74 16 134/77 (96) 96 Room Air 98.1 EKG EKG [] Radiology/Procedures Radiology/Procedures []PROCEDURE: CT HEAD WO CONTRAST EXAM: CT Head without IV contrast INDICATION: Left vision loss TECHNIQUE: Multi-detector row CT images were obtained of the head without the use of IV contrast. All CT scans performed at this facility utilize dose optimization techniques as appropriate to the exam, including the following: Automated exposure control and adjustment of the mA and/or KV according to patient size (this includes techniques or standardized protocols for targeted exams where dose is indication/reason for exam). COMPARISON: None FINDINGS: BRAIN PARENCHYMA: No evidence of acute intraparenchymal hemorrhage or infarct. No abnormal parenchymal density or mass. VENTRICLES & EXTRA-AXIAL SPACES: Ventricles are within normal limits. Basilar cisterns are patent. No pathologic extra-axial fluid collection or mass. ORBITS: Orbital contents are unremarkable. SINUSES: Visualized paranasal sinuses and mastoid air cells are clear. OSSEOUS & SOFT TISSUES: Calvarium and skull base are intact. IMPRESSION: Normal CT of the head without contrast. EXAM: CT Orbits without IV contrast INDICATION: Left vision loss. TECHNIQUE: Multi-detector row CT images were obtained through the orbits without the use of IV contrast. Post-processing reconstructed images were obtained for interpretation. All CT scans performed at this facility utilize dose optimization techniques as appropriate to the exam, including the following: Automated exposure control and adjustment of the mA and/or KV according to patient size (this includes techniques or standardized protocols for targeted exams where dose is indication/reason for exam). COMPARISON: None FINDINGS: The absence of IV contrast limits evaluation of soft tissue pathology. ORBITS: The globes are normal in size, contour, and position. The course and caliber of the optic nerve sheath complex is within normal limits. The extraocular muscles, intraconal fat, and extraconal fat are unremarkable. The lacrimal glands appear normal. The orbital palmer and optic canals are normal. No abnormal enhancement. VISUALIZED INTRACRANIAL STRUCTURES: Unremarkable. SINUSES: Visualized paranasal sinuses and mastoid air cells are clear. OSSEOUS & SOFT TISSUES: Unremarkable. IMPRESSION: Normal CT of the orbits without contrast. Electronically signed by: Juan Alberto Canales MD (08/30/2019 12:01 PM) [facility] DICTATED and SIGNED BY: JUAN ALBERTO CANALES MD DATE: 08/30/19 120 Course & Med Decision Making Course & Med Decision Making Pertinent Labs and Imaging studies reviewed. (See chart for details) This is a 43-year-old female patient presenting to the ED today complaining of an episode of vision loss in the left eye that occurred this morning when she woke up. She believes it was around 8 AM. Vision loss resolved itself after 5 minutes currently denies any vision issues. Patient has no other symptoms. She reports she has previous history of bilateral vision issue from vision loss, double vision, blurry vision, she follows up with her PCP for this symptoms and has been told is due to her anxiety. Vision acuity in the ED right 20/30, left 20/20, bilateral 20/20. Blood pressure 134/74, heart rate 74. CT of the head is negative for any acute findings, CT of the orbits are negative. Stroke scale is negative. Patient was discharged to home. I recommended she follows up with an pocket and pulley machine operator as well as PCP. Dragon Disclaimer Dragon Disclaimer This electronic medical record was generated, in whole or in part, using a voice recognition dictation system. Departure Departure Impression: Primary Impression: Vision loss of left eye Disposition: HOME, SELF-CARE Condition: STABLE Referrals: NO PCP (PCP) ABIMAEL KIM MD follow up in one week with the provided eye doctor Patient Instructions: Eye - Blurred Vision Additional Instructions: You were elevated in the emergency room, we highly recommend you follow-up with the pocket and pulley machine operator as well as your primary care doctor. Kindly return to the ED at any point you have vision loss or any other concerning vision issues KAM ZULETA APRN Aug 30, 2019 12:31
== END 2019-08-30 12:42 | disposition home or self-care (01) ==
LOC: ER 09:40
DX: H54.62 Unqualified visual loss, left eye, normal vision right eye (principal); F41.9 Anxiety disorder, unspecified; E78.00 Pure hypercholesterolemia, unspecified; I10 Essential (primary) hypertension; Z98.51 Tubal ligation status; Z90.89 Acquired absence of other organs; Z98.890 Other specified postprocedural states; Z87.891 Personal history of nicotine dependence; Z88.0 Allergy status to penicillin; Z88.1 Allergy status to other antibiotic agents
CPT/HCPCS: 70450; 70480; 99285

== ENCOUNTER 2019-09-06 13:09 | Emergency (ER) | payer SELFPAY ==
[~2019-09-06] VITALS: Ht 154.9 cm; Wt 113.6 kg
--- NOTE | 2019-09-06 15:54 | PHYS DOC ---
Past Medical History Past Medical History: Anxiety, High Cholesterol, Hypertension Additional Past Medical Histor: PRE-DIABETES Past Surgical History: Tubal ligation, Other Additional Past Surgical Histo: Right knee surgery, Hemmorhoidectomy Smoking Status: Former Smoker Alcohol Use: None Drug Use: None Adult General Chief Complaint Chief Complaint: ABDOMINAL PAIN HPI HPI Patient is a 43 year old female who presents with right flank pain this been o ngoing since yesterday. The patient also been having chest pain this ongoing for 6 months. Patient rates her pain as 4-10 in severity and sharp. Denies any other symptoms including fever, nausea, vomiting, diarrhea. Complete ROS were reviewed and found to be within normal limits, except as docum ented in the HPI Current Medications Current Medications Current Medications Medications (Trade) Dose Ordered Sig/Lorna Start Time Stop Time Status Last Admin Dose Admin Fentanyl Citrate (Fentanyl 2ml Vial) 50 mcg 1X ONCE 09/06/19 16:00 09/06/19 16:01 DC 09/06/19 16:25 50 MCG Ondansetron HCl (Zofran) 4 mg 1X ONCE 09/06/19 16:00 09/06/19 16:01 DC 09/06/19 16:24 4 MG Sodium Chloride 1,000 ml @ 1,000 mls/hr 1X ONCE 09/06/19 16:00 09/06/19 16:59 09/06/19 16:24 1,000 MLS/HR Allergies Allergies Allergies Coded Allergies Type Severity Reaction Last Updated Verified erythromycin base Allergy Intermediate Passed Out 06/19/18 Yes Physical Exam Physical Exam Constitutional: Well developed, well nourished, no acute distress, non-toxic appearance. [] HENT: Normocephalic, atraumatic, bilateral external ears normal, oropharynx moist, no oral exudates, nose normal. [] Eyes: PERRLA, EOMI, conjunctiva normal, no discharge. [] Neck: Normal range of motion, no tenderness, supple, no stridor. [] Cardiovascular:Heart rate regular rhythm, no murmur [] Lungs & Thorax: Bilateral breath sounds clear to auscultation [] Abdomen: Bowel sounds normal, soft, no tenderness, no masses, no pulsatile masses. [] Skin: Warm, dry, no erythema, no rash. [] Back: No tenderness, no CVA tenderness. [] Neurologic: Alert and oriented X 3, normal motor function, normal sensory function, no focal deficits noted. [] Psychologic: Affect normal, judgement normal, mood normal. [] Current Patient Data Vital Signs Vital Signs Date Time Temp Pulse Resp B/P (MAP) Pulse Ox O2 Delivery O2 Flow Rate FiO2 09/06/19 16:25 15 100 Room Air 09/06/19 15:42 98.9 82 140/67 (91) 98.9 Lab Values Laboratory Tests Test 09/06/19 15:35 09/06/19 15:45 09/06/19 16:08 Urine Collection Type Unknown Urine Color Yellow Urine Clarity Clear Urine pH 7.0 Urine Specific [place] 1.025 Urine Protein Negative mg/dL (NEG-TRACE) Urine Glucose (UA) Negative mg/dL (NEG) Urine Ketones (Stick) Negative mg/dL (NEG) Urine Blood Negative (NEG) Urine Nitrite Negative (NEG) Urine Bilirubin Negative (NEG) Urine Urobilinogen Dipstick 1.0 mg/dL (0.2 mg/dL) Urine Leukocyte Esterase Negative (NEG) Urine RBC 0 /HPF (0-2) Urine WBC Occ /HPF (0-4) Urine Squamous Epithelial Cells Mod /LPF Urine Bacteria Few /HPF (0-FEW) Urine Mucus Marked /LPF POC Urine HCG, Qualitative Hcg negative (Negative) White Blood Count 5.8 x10^3/uL (4.0-11.0) Red Blood Count 4.45 x10^6/uL (3.50-5.40) Hemoglobin 13.3 g/dL (12.0-15.5) Hematocrit 39.2 % (36.0-47.0) Mean Corpuscular Volume 88 fL (79-100) Mean Corpuscular Hemoglobin 30 pg (25-35) Mean Corpuscular Hemoglobin Concent 34 g/dL (31-37) Red Cell Distribution Width 14.3 % (11.5-14.5) Platelet Count 314 x10^3/uL (140-400) Neutrophils (%) (Auto) 52 % (31-73) Lymphocytes (%) (Auto) 32 % (24-48) Monocytes (%) (Auto) 12 % (0-9) H Eosinophils (%) (Auto) 3 % (0-3) Basophils (%) (Auto) 1 % (0-3) Neutrophils # (Auto) 3.1 x10^3/uL (1.8-7.7) Lymphocytes # (Auto) 1.9 x10^3/uL (1.0-4.8) Monocytes # (Auto) 0.7 x10^3/uL (0.0-1.1) Eosinophils # (Auto) 0.1 x10^3/uL (0.0-0.7) Basophils # (Auto) 0.1 x10^3/uL (0.0-0.2) Sodium Level 139 mmol/L (136-145) Potassium Level 4.2 mmol/L (3.5-5.1) Chloride Level 101 mmol/L (98-107) Carbon Dioxide Level 27 mmol/L (21-32) Anion Gap 11 (6-14) Blood Urea Nitrogen 9 mg/dL (7-20) Creatinine 0.8 mg/dL (0.6-1.0) Estimated GFR (Cockcroft-Gault) 93.9 BUN/Creatinine Ratio 11 (6-20) Glucose Level 91 mg/dL (70-99) Calcium Level 9.2 mg/dL (8.5-10.1) Total Bilirubin 0.6 mg/dL (0.2-1.0) Aspartate Amino Transferase (AST) 21 U/L (15-37) Alanine Aminotransferase (ALT) 24 U/L (14-59) Alkaline Phosphatase 88 U/L (46-116) Troponin I Quantitative < 0.017 ng/mL (0.000-0.055) Total Protein 8.1 g/dL (6.4-8.2) Albumin 3.5 g/dL (3.4-5.0) Albumin/Globulin Ratio 0.8 (1.0-1.7) L Lipase 76 U/L (73-393) Laboratory Tests 09/06/19 16:08 Laboratory Tests 09/06/19 16:08 EKG EKG EKG interpreted by Dr. Alicia Alvarez with rate of 79. Radiology/Procedures Radiology/Procedures [][facility] [address] [place], [place] [id number] IMAGING REPORT Signed PATIENT: OVERALL,CRYSTAL ACCOUNT: [id number] : 1975 LOCATION: ER AGE: 43 SEX: F EXAM STATUS: REG ER ORD. PHYSICIAN: KISHA YEN APRN REASON: R flank pain PROCEDURE: CT ABDOMEN PELVIS WO CONTRAST Abdominal and Pelvis CT, Without Contrast: History: Right flank pain Comparison: None. Procedure: Axial images are obtained of the abdomen and pelvis, without IV or oral contrast. Oral Contrast: No Findings: Evaluation of solid organs is limited without contrast. Liver: Normal. Spleen: Normal. Pancreas: Normal. Adrenal Glands: Normal. Kidneys: Normal. There is no free air or free fluid. There is no lymphadenopathy. The urinary bladder is collapsed and not well evaluated. There is no pericolonic inflammation identified. There is multiple mildly enlarged lymph nodes on the left. The appendix is normal. Impression: 1. Mild lymphadenopathy in the left groin is of uncertain etiology but could be reactive. 2. No acute intra-abdominal process identified. End impression PQRS Compliance Statement: One or more of the following individualized dose reduction techniques were utilized for this examination: 1. Automated exposure control 2. Adjustment of the mA and/or kV according to patient size 3. Use of iterative reconstruction technique Electronically signed by: Arie Parker III, MD (09/06/2019 4:14 PM) [id number] DICTATED and SIGNED BY: ARIE PARKER III, MD DATE: 09/06/19 161 Course & Med Decision Making Course & Med Decision Making Pertinent Labs and Imaging studies reviewed. (See chart for details) We will get labs, CT, and urine. Will also give supportive care. Labs look unremarkable for acute changes. CT is unremarkable. Urine is unremarkable. Will d/c home. Dragon Disclaimer Selvinon Disclaimer This electronic medical record was generated, in whole or in part, using a voice recognition dictation system. Departure Departure Impression: Primary Impression: Abdominal pain Disposition: HOME, SELF-CARE Condition: STABLE Referrals: NO PCP (PCP) Patient Instructions: Abdominal Pain (Nonspecific) Additional Instructions: Thank you for visiting [facility]. We appreciate you trusting us with your care. If any additional problems come up don't hesitate to return to visit us. Please follow up with your primary care provider so they can plan additional care if needed and know about the problem that you had. If symptoms worsen come back to the Emergency Department. Any concerning symptoms that start such as chest pain, shortness of air, weakness or numbness on one side of the body, running high fevers or any other concerning symptoms return to the ER. Problem Qualifiers Primary Impression: Abdominal pain Abdominal location: generalized Qualified Codes: R10.84 - Generalized abdominal pain KISHA YEN APRN Sep 06, 2019 15:54
[2019-09-06] MEDS ORDERED: IV NORMAL SALINE 1000ML BAG 1,000 ML IV ONE (16:00)
[2019-09-06] MEDS ORDERED: ONDANSETRON PF 4 MG/2 ML VIAL. IV ONE (16:00)
[2019-09-06] MEDS ORDERED: fentaNYL PF VIAL 100 MCG/2 ML VIAL IV ONE (16:00)
[2019-09-06 16:07] LABS: BILIRUBIN,URINE NEGATIVE (NEG); CLARITY,URINE CLEAR; COLOR,URINE YELLOW; NITRITE,URINE NEGATIVE (NEG); PROTEIN,URINE NEGATIVE (NEG-TRACE)
[2019-09-06 16:11] LABS: RBC,URINE 0 /HPF (0-2); SQUAMOUS EPITHELIAL CELL,UR MOD /LPF; WBC,URINE OCC /HPF (0-4)
[2019-09-06 16:12] LABS: BACTERIA,URINE FEW /HPF (0-FEW)
--- NOTE | 2019-09-06 16:17 | RAD ---
Abdominal and Pelvis CT, Without Contrast: History: Right flank pain Comparison: None. Procedure: Axial images are obtained of the abdomen and pelvis, without IV or oral contrast. Oral Contrast: No Findings: Evaluation of solid organs is limited without contrast. Liver: Normal. Spleen: Normal. Pancreas: Normal. Adrenal Glands: Normal. Kidneys: Normal. There is no free air or free fluid. There is no lymphadenopathy. The urinary bladder is collapsed and not well evaluated. There is no pericolonic inflammation identified. There is multiple mildly enlarged lymph nodes on the left. The appendix is normal. Impression: 1. Mild lymphadenopathy in the left groin is of uncertain etiology but could be reactive. 2. No acute intra-abdominal process identified. End impression PQRS Compliance Statement: One or more of the following individualized dose reduction techniques were utilized for this examination: 1. Automated exposure control 2. Adjustment of the mA and/or kV according to patient size 3. Use of iterative reconstruction technique Electronically signed by: Cuauhtemoc Parker III, MD (09/06/2019 4:14 PM) [id number]
[2019-09-06 16:22] LABS: BASO # 0.1 x10^3/uL (0.0-0.2); BASO % 1 % (0-3); EOS # 0.1 x10^3/uL (0.0-0.7); EOS % 3 % (0-3); HEMATOCRIT 39.2 % (36.0-47.0); HEMOGLOBIN 13.3 g/dL (12.0-15.5); LYMPH # 1.9 x10^3/uL (1.0-4.8); LYMPH % 32 % (24-48); MEAN CORPUSCULAR HEMOGLOBIN 30 pg (25-35); MEAN CORPUSCULAR HGB CONC 34 g/dL (31-37); MEAN CORPUSCULAR VOLUME 88 fL (79-100); MONO # 0.7 x10^3/uL (0.0-1.1); MONO % 12 % (0-9); NEUT # 3.1 x10^3/uL (1.8-7.7); NEUT % 52 % (31-73); PLATELET COUNT 314 x10^3/uL (140-400); RED BLOOD COUNT 4.45 x10^6/uL (3.50-5.40); RED CELL DISTRIBUTION WIDTH 14.3 % (11.5-14.5); WHITE BLOOD COUNT 5.8 x10^3/uL (4.0-11.0)
[2019-09-06 16:34] LABS: CALCIUM 9.2 mg/dL (8.5-10.1); CREATININE 0.8 mg/dL (0.6-1.0); GFR 93.9; POTASSIUM 4.2 mmol/L (3.5-5.1)
[2019-09-06 16:39] LABS: ALBUMIN 3.5 g/dL (3.4-5.0); ALBUMIN/GLOBULIN RATIO 0.8 (1.0-1.7); TOTAL BILIRUBIN 0.6 mg/dL (0.2-1.0); TOTAL PROTEIN 8.1 g/dL (6.4-8.2)
[2019-09-06 16:55] VITALS: BP 145/80
--- NOTE | 2019-09-07 07:06 | EKG ---
[facility] [address] [place] [address] Test Date: 2019-09-06 Test Time: 16:08:08 Pat Name: BETHANIE THOMAS Department: Room: Gender: F Folder Machine: : 1975 Requested By: KISHA YEN Order Number: [id number] Reading MD: Measurements Intervals [place] Rate: 79 P: 54 IN: 152 QRS: 80 QRSD: 76 T: -2 QT: 368 QTc: 423 Interpretive Statements SINUS RHYTHM NORMAL ECG RI6.01 No previous ECG available for comparison
== END 2019-09-06 17:10 | disposition home or self-care (01) ==
LOC: ER 13:09
DX: R10.84 Generalized abdominal pain (principal); R07.89 Other chest pain; F41.9 Anxiety disorder, unspecified; E78.00 Pure hypercholesterolemia, unspecified; I10 Essential (primary) hypertension; Z87.891 Personal history of nicotine dependence; Z98.51 Tubal ligation status; Z98.890 Other specified postprocedural states; Z88.1 Allergy status to other antibiotic agents
CPT/HCPCS: 36415; 74176; 80053; 81001; 81025; 83690; 84484; 85025; 93005; 96374; 96375; 99285; J2405; J3010; J7030

== ENCOUNTER 2020-10-19 20:58 | Emergency (ER) | payer SELFPAY ==
[~2020-10-19] VITALS: Ht 154.9 cm; Wt 111.8 kg
[2020-10-19] MEDS ORDERED: NAPR-514 PO (21:55)
[2020-10-19] MEDS ORDERED: PENI500T PO (21:55)
[2020-10-19] MEDS ORDERED: HYDR-2761 PO (21:55)
--- NOTE | 2020-10-19 21:59 | ED.ADGEN ---
Past Medical History Past Medical History: Anxiety, Diabetes-Type II, High Cholesterol, Hypert ension, Other Additional Past Medical Histor: PRE-DIABETES Past Surgical History: Tubal ligation, Other Additional Past Surgical Histo: Right knee surgery, Hemmorhoidectomy,UTERINE ABLATION Smoking Status: Former Smoker Alcohol Use: None Drug Use: None General Adult EDM: Chief Complaint: DENTAL PROBLEM HPI: HPI: Patient is a 44 year old AA female who presents emergency department with complaints of left upper dental pain since yesterday. Patient reports a history of a broken dental bridge in multiple broken and missing teeth in the left upper quadrant. She denies any fever, nausea, vomiting, diarrhea, sore throat, abdominal pain, headache, ear pain, body aches, or fatigue. Patient denies any difficulty swallowing. Patient states she tried taking some ibuprofen with little relief of her discomfort. She currently rates pain 8 out of 10 on pain scale, she denies any alleviating factors. She denies any recent trauma to the area. Review of Systems: Review of Systems: Complete ROS is negative unless otherwise noted in HPI. Allergies: Allergies: Allergies Coded Allergies Type Severity Reaction Last Updated Verified erythromycin base Allergy Intermediate Passed Out 06/19/18 Yes Penicillins Adverse Reaction Intermediate VOMITTING 10/19/20 Yes Physical Exam: PE: See Above Constitutional: Well developed, well nourished, no acute distress, non-toxic appearance, obese. [] HENT: Normocephalic, atraumatic, bilateral external ears normal, bilateral TMs normal, posterior pharynx normal, oropharynx moist, nose normal; diffuse dental decay of the left upper quadrant with dental bridge and multiple missing teeth, no visible or palpable dental abscess Eyes: PERRLA, EOMI, conjunctiva normal, no discharge. [] Neck: Normal range of motion, supple, nontender, no stridor. [] Cardiovascular:Heart rate regular rhythm Lungs & Thorax: Respirations even and unlabored, no retractions, no respiratory distress Skin: Warm, dry, no erythema, no rash. [] Extremities: No cyanosis, ROM intact, no edema. [] Neurologic: Alert and oriented X 3, no focal deficits noted. [] Psychologic: Affect normal, judgement normal, mood normal. [] Current Patient Data: Vital Signs: Vital Signs Date Time Temp Pulse Resp B/P (MAP) Pulse Ox O2 Delivery O2 Flow Rate FiO2 10/19/20 22:15 90 18 126/72 (90) 98 Room Air EKG: EKG: [] Heart Score: C/O Chest Pain: No Risk Scores: Score 0 - 3: 2.5% MACE over next 6 weeks - Discharge Home Score 4 - 6: 20.3% MACE over next 6 weeks - Admit for Clinical Observation Score 7 - 10: 72.7% MACE over next 6 weeks - Early Invasive Strategies Radiology/Procedures: Radiology/Procedures: [] Course & Med Decision Making: Course & Med Decision Making Pertinent Labs and Imaging studies reviewed. (See chart for details) [] Dragon Disclaimer: Dragon Disclaimer: This electronic medical record was generated, in whole or in part, using a voice recognition dictation system. Departure Departure Impression: Primary Impression: Dentalgia Additional Impressions: Dental bridge present Teeth missing Dental infection Disposition: 01 HOME / SELF CARE / HOMELESS Condition: STABLE Referrals: NO PCP (PCP) Patient Instructions: Dental Abscess, Dental Pain, [id number] Additional Instructions: Fill prescription(s) and use as directed. Follow up with dentist using the r eferral list provided. Return to the ER if symptoms worsen or fever develops. [facility] [address] [place] [address] [facility] [address] [place] [address] [facility] [address] [place] [address] [facility] [address] [place] [address] Replaced By [facility] [address] [place] [address] [facility] [address] [place] [address] [facility] [address] [place] [address] [facility] [address] [place] [address] [facility] [address] [place] [address] [facility] [address] [place] [address] Scripts Hydrocodone Bit/Acetaminophen (HYDROCODONE-APAP 5-325 ) 1 Tab Tablet 0.5-1 TAB PO PRN Q6HRS PRN for SEVERE PAIN 7-10, #4 TAB 0 Refills Prov: BELGICA NOBLE APRN 10/19/20 Naproxen (NAPROXEN) 500 Mg Tablet 1 TAB PO BID PRN for PAIN for 10 Days, #20 TAB 0 Refills Prov: BELGICA NOBLE APRN 10/19/20 Penicillin V Potassium (PENICILLIN V POTASSIUM) 500 Mg Tablet 1 TAB PO QID for 10 Days, #40 TAB 0 Refills Prov: BELGICA NOBLE APRN 10/19/20 Attending Signature Attending Signature I have participated in the care of this patient and I have reviewed and agree with all pertinent clinical information above including history, exam, and recommendations. Problem Qualifiers BELGICA NOBLE APRN Oct 19, 2020 21:59 AYNI GONG MD Oct 20, 2020 04:57
[2020-10-19 22:15] VITALS: BP 126/72
== END 2020-10-19 22:30 | disposition home or self-care (01) ==
LOC: ER 20:58
DX: K04.7 Periapical abscess without sinus (principal); K08.89 Other specified disorders of teeth and supporting structures; K00.0 Anodontia; F41.9 Anxiety disorder, unspecified; E11.9 Type 2 diabetes mellitus without complications; E78.00 Pure hypercholesterolemia, unspecified; I10 Essential (primary) hypertension; Z87.891 Personal history of nicotine dependence; Z98.51 Tubal ligation status; Z98.890 Other specified postprocedural states; Z88.0 Allergy status to penicillin; Z88.1 Allergy status to other antibiotic agents
CPT/HCPCS: 99283

== ENCOUNTER 2021-03-26 01:21 | Emergency (ER) | payer SELFPAY ==
[~2021-03-26] VITALS: Ht 154.9 cm; Wt 109.0 kg
[~2021-03-26 01:21] MED LIST changes: +HYDR-2761 PO; +NAPR-514 PO; +PENI500T PO
--- NOTE | 2021-03-26 01:52 | PHYS DOC ---
Past Medical History Past Medical History: Anxiety, Diabetes-Type II, High Cholesterol, Hypert ension, Other Additional Past Medical Histor: PRE-DIABETES Past Surgical History: Tubal ligation, Other Additional Past Surgical Histo: Right knee surgery, Hemmorhoidectomy,UTERINE ABLATION Smoking Status: Former Smoker Alcohol Use: None Drug Use: None General Adult EDM: Chief Complaint: MULTIPLE COMPLAINTS HPI: HPI: Patient is a 45 year old female past medical history hypertension hyperlipidemia diabetes presents with Covid-like symptoms. Patient states she has had a cough with sputum production chills fatigue nasal congestion and a loss of smell since last Tuesday. Patient states her grandson was just admitted to the [facility] for Covid. On exam patient is alert and oriented x4 she is in no acute distress. Her oxygen saturation is 100% on room air. She is not febrile Patient has not been vaccinated against COVID-19. Review of Systems: Review of Systems: Review of systems: Constitutional symptoms- No fever, Positive chills. Eyes- No Discharge, No Visual Loss Respiratory symptoms- No shortness of breath, No wheezing, No Dyspnea on Exertion positive cough Cardiovascular Systems; No chest pain, No Palpitations, No syncope Gastrointestinal symptoms: NO abdominal pain, no nausea, no vomiting or diarrhea. Genitourinary symptoms: No dysuria. Musculoskeletal symptoms: No back pain No extremity pain. NEUROLOGICAL Symptoms: No headache, no generalized weakness; No focal Weakness Skin: No rash. Heart Score: C/O Chest Pain: N/A Risk Factors: Risk Factors: DM, Current or recent (<one month) smoker, HTN, HLP, family history of CAD, obesity. Risk Scores: Score 0 - 3: 2.5% MACE over next 6 weeks - Discharge Home Score 4 - 6: 20.3% MACE over next 6 weeks - Admit for Clinical Observation Score 7 - 10: 72.7% MACE over next 6 weeks - Early Invasive Strategies Allergies: Allergies: Allergies Coded Allergies Type Severity Reaction Last Updated Verified erythromycin base Allergy Intermediate Passed Out 06/19/18 Yes Penicillins Adverse Reaction Intermediate VOMITTING 10/19/20 Yes Physical Exam: PE: Constitutional: Well developed, well nourished, no acute distress, non-toxic appearance. [] HENT: Normocephalic, atraumatic, bilateral external ears normal, oropharynx moist, no oral exudates, nose normal. [] Eyes: PERRLA, EOMI, conjunctiva normal, no discharge. [] Neck: Normal range of motion, no tenderness, supple, no stridor. [] Cardiovascular:Heart rate regular rhythm, no murmur [] Lungs & Thorax: Bilateral breath sounds clear to auscultation [] Abdomen: Bowel sounds normal, soft, no tenderness, no masses, no pulsatile masses. [] Skin: Warm, dry, no erythema, no rash. [] Back: No tenderness, no CVA tenderness. [] Extremities: No tenderness, no cyanosis, no clubbing, ROM intact, no edema. [] Neurologic: Alert and oriented X 3, normal motor function, normal sensory function, no focal deficits noted. [] Psychologic: Affect normal, judgement normal, mood normal. [] EKG: EKG: [] Radiology/Procedures: Radiology/Procedures: [] Course & Med Decision Making: Course & Med Decision Making Pertinent Labs and Imaging studies reviewed. (See chart for details) [] Dragon Disclaimer: Dragon Disclaimer: This electronic medical record was generated, in whole or in part, using a voice recognition dictation system. Departure Departure Impression: Primary Impression: Person under investigation for COVID-19 Additional Impressions: Viral syndrome COVID-19 Disposition: 01 HOME / SELF CARE / HOMELESS Referrals: NO PCP (PCP) Patient Instructions: Viral Syndrome Additional Instructions: You have been tested for or diagnosed with COVID-19. It is an infection caused by a new type of coronavirus. COVID-19 will cause cold-like or mild flu symptoms in most. It can cause more severe symptoms like problems breathing in some. There is no treatment for COVID-19. The body will clear the infection over time. Self-care will help to ease discomfort. Steps to Take: Self-Care Rest as needed. Healthy habits may help you feel better. Steps include: Choose healthy foods including fruits and vegetables. Drink water throughout the day. Get plenty of sleep each night. If you smoke, try to quit. It may ease breathing. Avoid alcohol. Keep Others Healthy The virus can spread to others. Droplets are released every time you sneeze or cough. The droplets can get into the mouth, nose, or eyes of people near you and lead to infection. To lower the chances of spreading COVID-19 to others: Stay at home until your doctor has said it is safe to leave. If you tested positive this will mean staying isolated until both of the following are true: At least 7 days have passed since the start of illness. You are free of fever for at least 72 hours without the use of medicine. During this time: - Avoid public areas, events, or transportation. Do not return to work or school until your doctor has said it is safe to do so. - Call ahead if you need to go to a medical center. Let them know you may have COVID-19. It will help them guide you where to go. They may also ask you to wear a facemask when you come to the office. - If you call for emergency medical services, let them know you may have COVID- 19. While at home: - Try to avoid close contact with others. Stay about 6 feet away. - If possible, spend most of your time in a separate room from others. - Use a face mask if you will be in close contact with others such as sharing a room or vehicle. - Have someone wipe down common surfaces in the home. Use household team cdl driver every day on areas like doorknobs, counters, or sinks. - Cough or sneeze into a tissue. Throw the tissue away right after use. If a tissue is not available, cough or sneeze into your elbow. - Wash your hands often. Wash them after sneezing or coughing. Use soap and water and wash for at least 20 seconds. Alcohol based hand block cleaner can be used if soap and water is not available. - Do not prepare food for others. Avoid sharing personal items like forks, spoons, or toothbrushes. - Avoid close contact with pets while you are sick. There is no evidence of the virus passing to pets. This is a safety step until more is known about this virus. Isolation can be frustrating. Social interaction can help. Keep in touch with friends and family through phone and tech options. You can still interact with others in your home, just keep a safe distance of about 6 feet. Follow-up: Your doctors office will check in with you to see if there are any changes in your health. You may be asked to keep track of symptoms to share with them. They will also l et you know when you are clear to be in public again. Problems to Look Out For: Contact your doctor if your recovery is not going as you expect. Get emergency care if you have problems such as: - Trouble breathing - Nonstop chest pain or pressure - Changes in awareness, confusion, or problems waking - Lips or face have bluish color - Worsening of symptoms If you think you have an emergency, call for emergency medical services right away. As taken from [facility] NAVJOT LOPEZ DO Mar 26, 2021 01:52
[2021-03-26 02:07] VITALS: BP 138/68
[2021-03-26 06:56] LABS: INFLUENZA A PATIENT NEGATIVE (NEGATIVE); INFLUENZA B PATIENT NEGATIVE (NEGATIVE)
== END 2021-03-26 02:30 | disposition home or self-care (01) ==
LOC: ER 01:21
DX: U07.1 COVID-19 (principal); B34.9 Viral infection, unspecified; I10 Essential (primary) hypertension; E78.5 Hyperlipidemia, unspecified; E11.9 Type 2 diabetes mellitus without complications; E78.00 Pure hypercholesterolemia, unspecified; F41.9 Anxiety disorder, unspecified; Z98.51 Tubal ligation status; Z88.0 Allergy status to penicillin; Z88.1 Allergy status to other antibiotic agents
CPT/HCPCS: 87426; 87804; 99283

== ENCOUNTER 2021-04-10 19:32 | Emergency (ER) | payer SELFPAY ==
[~2021-04-10] VITALS: Ht 154.9 cm; Wt 111.8 kg
--- NOTE | 2021-04-10 19:38 | PHYS DOC ---
Past Medical History Past Medical History: Anxiety, Diabetes-Type II, High Cholesterol, Hypert ension, Other Additional Past Medical Histor: PRE-DIABETES Past Surgical History: Tubal ligation, Other Additional Past Surgical Histo: Right knee surgery, Hemmorhoidectomy,UTERINE ABLATION Smoking Status: Former Smoker Alcohol Use: None Drug Use: None General Adult EDM: Chief Complaint: ANXIETY/PANIC ATTACK HPI: HPI: Patient is a 45 year old female Review of Systems: Review of Systems: Constitutional: Denies fever or chills. [] Eyes: Denies change in visual acuity. [] HENT: Denies nasal congestion or sore throat. [] Respiratory: Denies cough or shortness of breath. [] Cardiovascular: Denies chest pain or edema. [] GI: Denies abdominal pain, nausea, vomiting, bloody stools or diarrhea. [] : Denies dysuria. [] Musculoskeletal: Denies back pain or joint pain. [] Integument: Denies rash. [] Neurologic: Denies headache, focal weakness or sensory changes. [] Endocrine: Denies polyuria or polydipsia. [] Lymphatic: Denies swollen glands. [] Psychiatric: Denies depression or anxiety. [] Heart Score: Risk Factors: Risk Factors: DM, Current or recent (<one month) smoker, HTN, HLP, family history of CAD, obesity. Risk Scores: Score 0 - 3: 2.5% MACE over next 6 weeks - Discharge Home Score 4 - 6: 20.3% MACE over next 6 weeks - Admit for Clinical Observation Score 7 - 10: 72.7% MACE over next 6 weeks - Early Invasive Strategies Allergies: Allergies: Allergies Coded Allergies Type Severity Reaction Last Updated Verified erythromycin base Allergy Intermediate Passed Out 06/19/18 Yes Penicillins Adverse Reaction Intermediate VOMITTING 10/19/20 Yes Physical Exam: PE: Constitutional: Well developed, well nourished, no acute distress, non-toxic appearance. [] HENT: Normocephalic, atraumatic, bilateral external ears normal, oropharynx moist, no oral exudates, nose normal. [] Eyes: PERRLA, EOMI, conjunctiva normal, no discharge. [] Neck: Normal range of motion, no tenderness, supple, no stridor. [] Cardiovascular:Heart rate regular rhythm, no murmur [] Lungs & Thorax: Bilateral breath sounds clear to auscultation [] Abdomen: Bowel sounds normal, soft, no tenderness, no masses, no pulsatile masses. [] Skin: Warm, dry, no erythema, no rash. [] Back: No tenderness, no CVA tenderness. [] Extremities: No tenderness, no cyanosis, no clubbing, ROM intact, no edema. [] Neurologic: Alert and oriented X 3, normal motor function, normal sensory function, no focal deficits noted. [] Psychologic: Affect normal, judgement normal, mood normal. [] EKG: EKG: [] Radiology/Procedures: Radiology/Procedures: [] Course & Med Decision Making: Course & Med Decision Making Pertinent Labs and Imaging studies reviewed. (See chart for details) [] Dragon Disclaimer: Dragon Disclaimer: This electronic medical record was generated, in whole or in part, using a voice recognition dictation system. Departure Departure Referrals: NO PCP (PCP) ONDINA YOUNGBLOOD DO Apr 10, 2021 19:38
--- NOTE | 2021-04-10 19:43 | PHYS DOC ---
Past Medical History Past Medical History: Anxiety, Diabetes-Type II, High Cholesterol, Hypert ension, Other Additional Past Medical Histor: PRE-DIABETES Past Surgical History: Tubal ligation, Other Additional Past Surgical Histo: Right knee surgery, Hemmorhoidectomy,UTERINE ABLATION Smoking Status: Former Smoker Alcohol Use: None Drug Use: None General Adult EDM: Chief Complaint: ANXIETY/PANIC ATTACK HPI: HPI: Patient is a 45 year old female with history of anxiety who presents with increased anxiety for the past 3 weeks. Patient states she was diagnosed with COVID-19 about 3 weeks ago, and since that time she has had increased fear and anxiety surrounding Covid infection and being around a lot of people. Additionally, she worries about her grandchildren going to school. She used to have a primary care physician who managed her anxiety, however she has not been set up with a new primary care physician. She states that she was to receive a phone call with someone to assign a new primary care physician to her, but they never called. At this time, patient is seeking short-term medical management as well as resources for finding a new primary care provider. Patient has no other complaints at this time. Review of Systems: Review of Systems: ROS negative except as mentioned in HPI. Heart Score: C/O Chest Pain: No Allergies: Allergies: Allergies Coded Allergies Type Severity Reaction Last Updated Verified erythromycin base Allergy Intermediate Passed Out 06/19/18 Yes Penicillins Adverse Reaction Intermediate VOMITTING 10/19/20 Yes Physical Exam: PE: Constitutional: Well developed, well nourished, no acute distress, non-toxic appearance. [] HENT: Normocephalic, atraumatic, bilateral external ears normal, oropharynx moist, no oral exudates, nose normal. [] Eyes: PERRLA, EOMI, conjunctiva normal, no discharge. [] Neck: Normal range of motion, no tenderness, supple, no stridor. [] Cardiovascular:Heart rate regular rhythm, no murmur [] Lungs & Thorax: Bilateral breath sounds clear to auscultation [] Abdomen: Bowel sounds normal, soft, no tenderness, no masses, no pulsatile masses. [] Skin: Warm, dry, no erythema, no rash. [] Back: No tenderness, no CVA tenderness. [] Extremities: No tenderness, no cyanosis, no clubbing, ROM intact, no edema. [] Neurologic: Alert and oriented X 3, normal motor function, normal sensory function, no focal deficits noted. [] Psychologic: Affect normal, judgement normal, mood normal. [] EKG: EKG: [] Radiology/Procedures: Radiology/Procedures: [] Course & Med Decision Making: Course & Med Decision Making Pertinent Labs and Imaging studies reviewed. (See chart for details) Patient has taken hydroxyzine with success in managing her acute anxiety in the past. 25 mg will be provided to her in the emergency department. Patient states that she feels significant relief after medication administration. She will be provided with a prescription to treat acute anxiety until she is able to obtain a primary care provider for further management. She will be provided with resources today to aid her in that process. Patient understands and is agreeable to discharge plan Oscar Disclaimer: Oscar Disclaimer: This electronic medical record was generated, in whole or in part, using a voice recognition dictation system. Departure Departure Impression: Primary Impression: Acute anxiety Disposition: HOME / SELF CARE / HOMELESS Condition: STABLE Referrals: NO PCP (PCP) Patient Instructions: Anxiety and Panic Attacks, [id number] Additional Instructions: You were provided today with resources so that you might obtain a primary care doctor. Please return to the emergency department if your symptoms worsen. Scripts Hydroxyzine Hcl (HYDROXYZINE HCL) 25 Mg Tablet 1 TAB PO PRN PRN for ANXIETY / AGITATION, #20 TAB Prov: WALTER MARIANO 04/10/21 WALTER MARIANO Apr 10, 2021 19:43
[2021-04-10] MEDS ORDERED: hydrOXYzine 25 MG TABLET PO PRN (20:00)
[2021-04-10] MEDS ORDERED: HYDR25TA PO (20:27)
[2021-04-10 20:32] VITALS: BP 119/75
== END 2021-04-10 20:40 | disposition home or self-care (01) ==
LOC: ER 19:32
DX: F41.8 Other specified anxiety disorders (principal); E11.9 Type 2 diabetes mellitus without complications; E78.00 Pure hypercholesterolemia, unspecified; I10 Essential (primary) hypertension; Z88.1 Allergy status to other antibiotic agents; Z88.0 Allergy status to penicillin
CPT/HCPCS: 99283

== ENCOUNTER 2021-08-25 02:22 | Emergency (ER) | payer SELFPAY ==
[~2021-08-25] VITALS: Ht 154.9 cm; Wt 111.0 kg
[~2021-08-25 02:22] MED LIST changes: +HYDR25TA PO
[2021-08-25] MEDS ORDERED: ONDANSETRON ODT 4 MG TAB.RAPDIS. PO ONE (02:45)
[2021-08-25] MEDS ORDERED: ALPRAZolam 0.5 MG TABLET PO ONE ×2 (03:30→04:15)
[2021-08-25] MEDS ORDERED: HYDR25TA PO (05:07)
--- NOTE | 2021-08-25 05:11 | PHYS DOC ---
Past Medical History Past Medical History: Anxiety, Diabetes-Type II, High Cholesterol, Hypert ension, Other Additional Past Medical Histor: SLEEP APNEA NEEDS A MASK, CTS Past Surgical History: Knee Replacement, Tubal ligation Additional Past Surgical Histo: Right knee surgery, Hemmorhoidectomy,UTERINE ABLATION Smoking Status: Never Smoker Alcohol Use: None Drug Use: None General Adult EDM: Chief Complaint: ANXIETY/PANIC ATTACK HPI: HPI: 45-year-old -[place] female past medical history of sleep apnea, presents to the ED with complaints of waking up in the middle night and noticing her heart rate dropped to 40 bpm. States she rechecked and her heart rate increased to 118 after becoming stressed out. Reports she recently lost her neighbor due to a slow heart rate. 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 Reports her heart was racing and felt nauseous wh en she was stressed at home. States this has resolved but she feels very anxious. Not prescribed any daily medications for anxiety. Does not take any prescribed medications or have a routine primary care physician. Is surprised to hear her blood pressure is elevated. Reports no chest pain, shortness of breath or neurologic deficits Review of Systems: Review of Systems: Constitutional: Denies fever or chills. [] Eyes: Denies change in visual acuity. [] HENT: Denies nasal congestion or sore throat. [] Respiratory: Denies cough or shortness of breath. [] Cardiovascular: Denies chest pain or edema. [] GI: Denies vomiting or diarrhea : Denies dysuria or hematuria Musculoskeletal: Denies back pain or joint pain. [] Integument: Denies rash or diaphoresis Neurologic: Denies headache, focal weakness or sensory changes. [] Endocrine: Denies polyuria or polydipsia. [] Lymphatic: Denies swollen glands. [] Psychiatric: Denies depression, suicidal or homicidal ideations Heart Score: C/O Chest Pain: No Risk Factors: Risk Factors: DM, Current or recent (<one month) smoker, HTN, HLP, family history of CAD, obesity. Risk Scores: Score 0 - 3: 2.5% MACE over next 6 weeks - Discharge Home Score 4 - 6: 20.3% MACE over next 6 weeks - Admit for Clinical Observation Score 7 - 10: 72.7% MACE over next 6 weeks - Early Invasive Strategies Current Medications: Current Medications Medications (Trade) Dose Ordered Sig/Lorna Start Time Stop Time Status Last Admin Dose Admin Alprazolam (Xanax) 0.5 mg 1X ONCE 08/25/21 04:15 08/25/21 04:16 DC 08/25/21 04:57 0.5 MG Ondansetron HCl (Zofran Odt) 4 mg 1X ONCE 08/25/21 02:45 08/25/21 02:46 DC 08/25/21 03:35 4 MG Allergies: Allergies: Allergies Coded Allergies Type Severity Reaction Last Updated Verified erythromycin base Allergy Intermediate Passed Out 08/25/21 Yes Penicillins Adverse Reaction Intermediate VOMITTING 08/25/21 Yes Physical Exam: PE: Constitutional: Well developed, well nourished, no acute distress, non-toxic appearance, obese HENT: Normocephalic, atraumatic, Eyes: EOMI, conjunctiva normal, no discharge. Neck: Normal range of motion, supple, Cardiovascular: S1/2 present, regular rhythm Lungs & Thorax: Speaking in full sentences, bilateral equal chest rise, no ta chypnea or increased work of breathing Abdomen: soft, no tenderness, Skin: Warm, dry, no erythema, no rash. [] Extremities: No tenderness, no cyanosis, no lower extremity edema Neurologic: Alert and oriented X 3, normal motor function, normal sensory fu nction, no focal deficits noted. [] Psychologic: Affect normal, judgement normal, mood normal-appears calm, resting comfortably listening to a sermon on her phone Current Patient Data: Vital Signs: Vital Signs Date Time Temp Pulse Resp B/P (MAP) Pulse Ox O2 Delivery O2 Flow Rate FiO2 08/25/21 04:13 99 18 175/89 (117) 99 Room Air 08/25/21 02:29 98.3 98.3 EKG: EKG: [] Radiology/Procedures: Radiology/Procedures: [] Course & Med Decision Making: Course & Med Decision Making Pertinent Labs and Imaging studies reviewed. (See chart for details) Concern for uncontrolled anxiety, not on any routine medications. That improved emergency department with Xanax. Will prescribe hydroxyzine recommend PMD follow-up, consider psychiatry evaluation. Patient also has uncontrolled hypertension and is asymptomatic. Will recommend follow-up in the next week with primary care physician to repeat her blood pressure. Will discharge home with strict ED return precautions were given for suicidal homicidal ideations, chest pain, neurologic deficits, shortness of breath or confusion. Encouraged urgent outpatient follow-up with PMD and psychiatry. Life-threatening processes were considered but are low suspicion at this time, given history, physical exam and ED workup. Pt was educated on all prescription medications and adverse effects. All patient's questions were answered and pt was stable at time of discharge. Life/limb-threatening differential includes but is not limited to, end organ d amage/sepsis, trauma/abuse/neglect, neurologic deficit, alcohol/drug ingestion, toxidrome, suicidal/homicidal ideations plans or attempts, psychosis or mental illness resulting in self neglect and inability to care for self. I have spoken with the patient and/or caregivers. I explained the patient's condition, diagnoses and treatment plan based on the information available to me at this time. I have answered the patient and/or caregiver's questions and addressed any concerns. The patient and/or caregivers have a good understanding of patient's diagnosis, condition and treatment plan as can be expected at this point. Vital signs have been stable. Patient's condition is stable and appropriate for discharge from the emergency department. Patient will pursue further outpatient evaluation with primary care physician or other designated or consulting physician as outlined in the discharge instructions. The patient and/or caregivers are agreeable to this plan of care and follow-up instructions have been explained in detail. The patient and/or caregivers have received these instructions in written form and have expressed an understanding of the discharge instructions. The patient and/or caregivers are aware that any significant change of condition or worsening of symptoms should prompt immediate return to this or the closest emergency department or call to 911. Oscar Disclaimer: Oscar Disclaimer: This electronic medical record was generated, in whole or in part, using a voice recognition dictation system. Departure Departure Impression: Primary Impression: Acute anxiety Additional Impression: Asymptomatic hypertension Disposition: 01 HOME / SELF CARE / HOMELESS Condition: STABLE Referrals: NO PCP (PCP) Follow-up with your primary care physician in 24 to 48 hours OR FOLLOW UP WITH FAMILY MEDICINE: [id number] [place] [address] Patient Instructions: Anxiety and Panic Attacks, Hypertension Additional Instructions: FOLLOW UP WITH PSYCHIATRY: FOR DEFINITIVE MANAGEMENT of anxiety Dr. Rik Merino Psychiatry Specialist [address] [place], [place] [address] EMERGENCY DEPARTMENT GENERAL DISCHARGE INSTRUCTIONS Thank you for coming to [facility] Emergency Department (ED) today and trusting us with you care. We trust that you had a positive experience in our Emergency Department. If you wish to speak to the department management, you may call the Director at [phone]. YOUR FOLLOW UP INSTRUCTIONS ARE FOLLOWS: 1. Do you have a private Doctor? If you do not have a private doctor, please ask for a resource list of physicians or clinics that may be able to assist you with follow up care. 2. The Emergency Physicain has interpreted your x-rays. The X-Ray specialist will also review them. If there is a change in the findings, you will be notified in 48 hours when at all possible. 3. A lab test or culture has been done, your results will be reviewed and you will be notified if you need a change in treatment. ADDITIONAL INSTRUCTIONS AND INFORMATION: 1. Your care today has been supervised by a physician who is specially trained in emergency care. Many problems require more than one evaluation for a complete diagnosis and treatment. We recommend that you schedule your follow up appointment as recommended to ensure complete treatment of you illness or injury. If you are unable to obtain follow up care and continue to have a problem, or if your condition worsens, we recommend that you return to the ED. 2. We are not able to safely determine your condition over the phone nor are we able to give sound medical advice over the phone. For these safety reasons, if you call for medical advice we will ask you to come to the ED for further evaluation. 3. If you have any questions regarding these discharge instructions please call the ED at [phone]. SAFETY INFORMATION: In the interest of safety, wellness, and injury prevention; we encourage you to wear your sealbelt, if you smoke; quite smoking, and we encourage family to use a protective helmet for bicycling and other sporting events that present an increased risk for head injury. IF YOUR SYMPTOMS WORSEN OR NEW SYMPTOMS DEVELOP, OR YOU HAVE CONCERNS ABOUT YOUR CONDITION; OR IF YOUR CONDITION WORSENS WHILE YOU ARE WAITING FOR YOUR FOLLOW UP APPOINTMENT; EITHER CONTACT YOUR PRIMARY CARE DOCTOR, THE PHYSICIAN WHOSE NAME AND NUMBER YOU WERE GIVEN, OR RETURN TO THE ED IMMEDIATELY. Scripts Hydroxyzine Hcl (HYDROXYZINE HCL) 25 Mg Tablet 1 TAB PO TID for anxiety, #30 TAB Prov: JORDI SOLO DO 08/25/21 JORDI SOLO DO Aug 25, 2021 05:11
[2021-08-25 05:45] VITALS: BP 173/87
== END 2021-08-25 05:35 | disposition home or self-care (01) ==
LOC: ER 02:22
DX: F41.8 Other specified anxiety disorders (principal); I10 Essential (primary) hypertension; E11.9 Type 2 diabetes mellitus without complications; E78.00 Pure hypercholesterolemia, unspecified; G47.30 Sleep apnea, unspecified; Z88.1 Allergy status to other antibiotic agents; Z88.0 Allergy status to penicillin
CPT/HCPCS: 99284